=== PATIENT | female | born 1930 | race Caucasian/White ===

== ENCOUNTER 2016-05-05 07:27 | Inpatient (IN) | payer OTHER ==
[~2016-05-05] VITALS: Ht 167.6 cm; Wt 94.0 kg
[~2016-05-05 07:27] MED LIST: ALLO300T2 PO; ATEN50TA8 PO; FLUT1INH PO; FRRS300 PO; INSDGIPEN SQ; LISI-725 PO; LORA-741 PO; MIRT15TA3 PO; ONDA4TAB4 PO; OXGN
--- NOTE | 2016-05-05 07:52 | EMERGENCY ROOM VISIT NOTE ---
History Report prepared by Scribe: Maria A Reyes Under the Supervision of: Dr. Ben Kern M.D. First contact with patient: 07:38 Chief Complaint: ALTERED MENTAL STATUS Stated Complaint: ALTERED MENTAL STAUS ?SEPSIS? History of Present Illness The patient is an 86 year old female who presents to the Emergency Room with complaints of a persistently altered mental status. She is accompanied by her daughter. Her daughter reports her mental state has been worsening in the past few days. The patient fell on April 17, 2016, but her daughter denies any known head injuries. The patient started experiencing diarrhea yesterday and her daughter reports "It has been watery in nature". Her daughter notes the patient has been septic in the past and states "that is how she's acting currently". She reports the patient has also been "eating napkins and plates recently" and notes her urine has been "foul and strong". Her daughter also states the patient has been "leaning to the right" over the past few days. The patient denies any recent weakness, chest pain, shortness of breath or abdominal pain. She does not take daily blood thinners. Source of History: patient, family (daughter) Onset: C WEB DEVELOPER Position: head Timing: other (persistent) Associated Symptoms: + diarrhea, + urinary symptoms, No SOB, No abdominal pain, No chest pain, No weakness Review of Systems See HPI for pertinent positives & negatives. A total of 10 systems reviewed and were otherwise negative. 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 Nurse's notes were reviewed and I agree with. Family History Diabetes mellitus FH: heart disease FH: lung disease FHx: cancer Hypertension Kidney disease Kidney stones Seizures Social History Smoking Status: Former Smoker Alcohol Use: none Drug Use: none Marital Status: Housing Status: lives with family Occupation Status: retired Current/Historical Medications Scheduled Allopurinol (Zyloprim), 300 MG PO DAILY Atenolol (Tenormin), 50 MG PO DAILY Ferrous Sulfate (Ferrous Sulfate), 325 MG PO QAM Fluticasone Furoate-Vilanterol (Breo Ellipta), 1 PUFF PO DAILY Insulin Glargine (Lantus Solostar), 14 UNITS SQ HS Lisinopril (Zestril), 20 MG PO QAM Mirtazapine (Remeron), 1 TAB PO HS Oxygen (Oxygen), 2.5 LITERS NA HS Scheduled PRN Lorazepam (Ativan), 0.5 MG PO TID PRN for Anxiety Allergies Coded Allergies: Ibuprofen (Verified Allergy, Mild, 05/05/16) Physical Exam Vital Signs Date Time Temp Pulse Resp B/P Pulse Ox O2 Delivery O2 Flow Rate FiO2 05/05/16 08:42 79 18 124/53 97 Room Air 05/05/16 07:30 36.8 89 16 132/71 97 Room Air Physical Exam General: Non-ill appearing older female, well developed, well nourished, in no acute distress, breathing comfortably on room air. Normal speech. Patient is alert to person and place but not date. HEENT: Normal cephalic atraumatic. Pupils are equal round and reactive to light. Extraocular movements are intact. Oropharynx is pink with moist mucous membranes. No swelling of the mouth lips or tongue. Neck: Supple with a midline trachea. No meningeal signs or stiffness, no JVD or bruits. No Stridor. Chest: Clear to auscultation bilaterally. No wheezes or rhonchi. No increased work of breathing. Heart: regular rate and rhythm. Abdomen: Soft nontender, nondistended without rebound guarding or rigidity. Extremities: No cyanosis clubbing or edema. No calf tenderness or assymetry Spine/Back. Non tender to palpation. No CVA tenderness Skin: Good turgor without rashes. Neurologic exam: Cranial nerves two through 12 are intact. Motor and sensation are intact and symmetrical throughout. Medical Decision & Procedures ER Provider Diagnostic Interpretation: This X-Ray was reviewed and interpreted by myself and the radiologist. CHEST ONE VIEW PORTABLE IMPRESSION: Negative chest. Electronically signed by: Tai Powell M.D. 05/05/2016 8:[address] scan was reviewed and interpreted by the radiologist and reviewed by myself. HEAD CT NONCONTRAST Impression: Age-related change. No acute process. Electronically signed by: Tai Powell M.D. 05/05/2016 8:19 AM Laboratory Results 05/05/16 08:10 Red Blood Count 4.10, Mean Corpuscular Volume 86.6, Mean Corpuscular Hemoglobin 28.8, Mean Corpuscular Hemoglobin Concent 33.2, Mean Platelet Volume 10.4, Neutrophils (%) (Auto) 78.5, Lymphocytes (%) (Auto) 10.9, Monocytes (%) (Auto) 9.4, Eosinophils (%) (Auto) 0.5, Basophils (%) (Auto) 0.2, Neutrophils # (Auto) 7.69, Lymphocytes # (Auto) 1.07, Monocytes # (Auto) 0.92, Eosinophils # (Auto) 0.05, Basophils # (Auto) 0.02 05/05/16 08:10 Test 05/05/16 08:10 05/05/16 08:13 05/05/16 08:14 05/05/16 08:40 White Blood Count 9.80 K/uL (4.8-10.8) Red Blood Count 4.10 M/uL (4.2-5.4) Hemoglobin 11.8 g/dL (12.0-16.0) Hematocrit 35.5 % (37-47) Mean Corpuscular Volume 86.6 fL (80-100) Mean Corpuscular Hemoglobin 28.8 pg (25-34) Mean Corpuscular Hemoglobin Concent 33.2 g/dl (32-36) Platelet Count 242 K/uL (130-400) Mean Platelet Volume 10.4 fL (7.4-10.4) Neutrophils (%) (Auto) 78.5 % Lymphocytes (%) (Auto) 10.9 % Monocytes (%) (Auto) 9.4 % Eosinophils (%) (Auto) 0.5 % Basophils (%) (Auto) 0.2 % Neutrophils # (Auto) 7.69 K/uL (1.4-6.5) Lymphocytes # (Auto) 1.07 K/uL (1.2-3.4) Monocytes # (Auto) 0.92 K/uL (0.11-0.59) Eosinophils # (Auto) 0.05 K/uL (0-0.5) Basophils # (Auto) 0.02 K/uL (0-0.2) RDW Standard Deviation 49.8 fL (36.4-46.3) RDW Coefficient of Variation 15.5 % (11.5-14.5) Immature Granulocyte % (Auto) 0.5 % Immature Granulocyte # (Auto) 0.05 K/uL (0.00-0.02) Red Blood Cell Morphology Unremarkable Prothrombin Time 10.8 SECONDS (9.0-12.0) Prothromb Time International Ratio 1.0 (0.9-1.1) Anion Gap 12.0 mmol/L (3-11) Estimated GFR () 13.5 Estimated GFR (Non- 11.7 BUN/Creatinine Ratio 21.8 (10-20) Calcium Level 8.9 mg/dl (8.5-10.1) Magnesium Level 2.2 mg/dl (1.8-2.4) Total Bilirubin 0.3 mg/dl (0.2-1) Direct Bilirubin 0.1 mg/dl (0-0.2) Aspartate Amino Transf (AST/SGOT) 14 U/L (15-37) Alanine Aminotransferase (ALT/SGPT) 18 U/L (12-78) Alkaline Phosphatase 105 U/L (45-117) Total Protein 7.9 gm/dl (6.4-8.2) Albumin 2.8 gm/dl (3.4-5.0) Lipase 237 U/L (73-393) Procalcitonin 0.21 ng/mL (0-0.5) Bedside Lactic Acid Venous 1.04 mmol/L (0.90-1.70) Bedside Troponin I 0.000 ng/ml (0-0.045) Urine Color YELLOW Urine Appearance TURBID (CLEAR) Urine pH 5.5 (4.5-7.5) Urine Specific [place] 1.009 (1.000-1.030) Urine Protein 3+ (NEG) Urine Glucose (UA) NEG (NEG) Urine Ketones NEG (NEG) Urine Occult Blood 2+ (NEG) Urine Nitrite POS (NEG) Urine Bilirubin NEG (NEG) Urine Urobilinogen NEG (NEG) Urine Leukocyte Esterase LARGE (NEG) Urine WBC (Auto) >30 /hpf (0-5) Urine RBC (Auto) >30 /hpf (0-4) Urine Hyaline Casts (Auto) 10-30 /lpf (0-5) Urine Epithelial Cells (Auto) 20-30 /lpf (0-5) Urine Bacteria (Auto) 1+ (NEG) Urine Pathogenic Casts /lpf (0) Urine Yeast (Auto) (NONE PRSENT) Laboratory studies as stated above per my review. Medications Administered Medications (Trade) Dose Ordered Sig/E[place]se Route Start Time Stop Time Status Last Admin Dose Admin Sodium Chloride 250 ml @ 999 mls/hr Q16M STAT IV 05/05/16 07:54 05/05/16 08:09 DC 05/05/16 08:41 999 MLS/HR Sodium Chloride 1,000 ml @ 100 mls/hr Q10H STAT IV 05/05/16 07:54 05/05/16 12:56 DC 05/05/16 08:42 100 MLS/HR Sodium Chloride (Nss 1000ml) 1,000 ml @ 999 mls/hr Q1H1M STAT IV 05/05/16 09:02 05/05/16 10:02 DC 05/05/16 09:35 999 MLS/HR Levofloxacin (Levaquin / D5W) 750 mg NOW STAT IV 05/05/16 09:02 05/05/16 09:03 DC 05/05/16 09:34 750 MG ECG Indication: altered mental status Rate (beats per minute): 93 Rhythm: normal sinus (normal sinus rhythm) Findings: nonspecific-ST abn, no acute ischemic change Change: no significant change (No significant change when compared to EKG from January,) ED Course 0738: Past medical records reviewed. The patient was evaluated in room B9, and a complete history and physical examination were performed. 0754: NSS 1000 ml @ 100 mls/hr IV, NSS 250 ml @ 999 mls/hr IV. 0902: Levaquin 750 mg IV, NSS 1000 ml @ 999 mls/hr IV. 0904: I discussed the patient's case with Tammy Mckeon. The patient will be further evaluated. Medical Decision Differential Diagnoses: UTI, sepsis, intracranial process, electrolyte or metabolic abnormality and arrhythmia. This patient comes in as described above. She was placed in room C9. She has been more weak and confused than typical. She's been getting worse over last week. She's had no fever. Daughter is worried about sepsis at she's had sepsis before felt similar. The patient denies any complaints. She's had no head trauma. IV access established. EKG was obtained as well as chest x-ray urinalysis and culture CAT scan of her head. She has a nonfocal neurologic exam and the CAT scan of her head is unremarkable. EKG does not suggest acute coronary syndrome or arrhythmia. She has no acute electrolyte or metabolic abnormalities with exception of significant renal insufficiency compared to baseline. Her creatinine is up in the 3 range. Her urinalysis grossly looks like pus and she clearly has a UTI. She was given IV fluid resuscitation with IV fluid boluses. She remained normotensive. Her lactic acid is not significantly elevated. She was given Levaquin 750 mg IV. Blood and urine cultures have been obtained. She will be admitted for further treatment and evaluation. Consults Time Called: 901 Consulting Physician: Tammy Mckeon Returned Call: [phone] I discussed the patient's case with Tammy Mckeon. The patient will be further evaluated. Impression Primary Impression: Sepsis Additional Impressions: UTI (urinary tract infection) Renal failure Altered mental status Scribe Attestation The scribe's documentation has been prepared under my direction and personally reviewed by me in its entirety. I confirm that the note above accurately reflects all work, treatment, procedures, and medical decision making performed by me. Departure Information Dispostion Being Evaluated By Hospitalist Referrals Khloe Salazar M.D. (MEDICAL) (PCP) Patient Instructions My [facility] Problem Qualifiers
[2016-05-05] MEDS ORDERED: SODIUM CHLORIDE 0.9% 1000ML 1,000 ML IV STA ×2 (07:54→09:02)
[2016-05-05] MEDS ORDERED: SODIUM CHLORIDE 0.9% 1000ML 250 ML IV STA (07:54)
--- NOTE | 2016-05-05 08:20 | DIAGNOSTIC IMAGING REPORT ---
HEAD CT NONCONTRAST CT DOSE: 614.27 mGy.cm HISTORY: Mental status change eval for weakness TECHNIQUE: Multiaxial CT images of the head were performed without the use of intravenous contrast. Comparison: 11/22/2014 Findings: The paranasal sinuses and mastoid air cells are clear. The calvarium and skull base are intact. The ventricles and sulci are within normal limits. There is no mass, hematoma, midline shift, or acute infarct. Age-related chronic small vessel change and atrophy Impression: Age-related change. No acute process. Electronically signed by: Tai Powell M.D. 05/05/2016 8:19 AM Dictated Date/Time: 05/05/2016 8:18 AM
[2016-05-05 08:28] LABS: HEMATOCRIT 35.5 % (37-47); MEAN CELL VOLUME 86.6 fL (80-100); MEAN CORPUSCULAR HEMOGLOBIN 28.8 pg (25-34); MEAN CORPUSCULAR HGB CONC 33.2 g/dl (32-36); MEAN PLATELET VOLUME 10.4 fL (7.4-10.4); PLATELET COUNT 242 K/uL (130-400)
--- NOTE | 2016-05-05 08:35 | DIAGNOSTIC IMAGING REPORT ---
CHEST ONE VIEW PORTABLE CLINICAL HISTORY: CHEST PAIN dyspnea COMPARISON STUDY: 03/01/2016 FINDINGS: The bones soft tissues and hemidiaphragms are normal. The cardiomediastinal silhouette is normal. The lungs are clear. The pulmonary vasculature is normal. IMPRESSION: Negative chest. Electronically signed by: Tai Powell M.D. 05/05/2016 8:33 AM Dictated Date/Time: 05/05/2016 8:33 AM
[2016-05-05] MEDS ORDERED: ONDA4TAB46 PO (08:39)
[2016-05-05 08:46] LABS: ALT/SGPT 18 U/L (12-78); BLOOD UREA NITROGEN 74 mg/dl (7-18); BUN/CREATININE RATIO 21.8 (10-20); CALCIUM 8.9 mg/dl (8.5-10.1); CARBON DIOXIDE 19 mmol/L (21-32); CHLORIDE 106 mmol/L (98-107); GLUCOSE 258 mg/dl (70-99); POTASSIUM 4.7 mmol/L (3.5-5.1); SODIUM 137 mmol/L (136-145)
[2016-05-05 08:49] LABS: ALKALINE PHOSPHATASE 105 U/L (45-117); AST/SGOT 14 U/L (15-37)
[2016-05-05 09:02] LABS: URINE APPEARANCE TURBID (CLEAR); URINE BILIRUBIN NEG (NEG); URINE COLOR YELLOW; URINE EPITHELIAL CELL AUTO 20-30 /lpf (0-5); URINE NITRITE POS (NEG); URINE PH 5.5 (4.5-7.5); URINE SPECIFIC GRAVITY 1.009 (1.000-1.030); UROBILINOGEN NEG (NEG)
[2016-05-05] MEDS ORDERED: LEVAQUIN 750MG / 150ML D5W IV STA (09:02)
[2016-05-05 09:03] LABS: MANUAL MICROSCOPIC REQUIRED? NO; REVIEW REQ? YES
[2016-05-05 09:20] LABS: BASO % 0.2 %; BASO ABS # 0.02 K/uL (0-0.2); COMPLETE YES; EOS % 0.5 %; IG% 0.5 %; LYMPH % 10.9 %; LYMPH ABS # 1.07 K/uL (1.2-3.4); MONO % 9.4 %; NEUT % 78.5 %
[2016-05-05 10:00] VITALS: O2SAT 97; Ht 167.6 cm; Wt 94.0 kg
[2016-05-05] MEDS ORDERED: ONDANSETRON INJ 2 MG/ML 2 ML VIAL IV PRN (10:00)
[2016-05-05] MEDS ORDERED: GLUCAGON FOR INJ 1 MG VIAL SQ PRN (10:00)
[2016-05-05] MEDS ORDERED: ACETAMINOPHEN 325 MG TAB PO PRN (10:00)
[2016-05-05] MEDS ORDERED: DEXTROSE 50% 50 ML SYR IV PRN (10:00)
[2016-05-05] MEDS ORDERED: GLUCOSE 40% GEL 15 GM TUBE PO PRN (10:00)
[2016-05-05] MEDS ORDERED: GLUCOSE 10 TABS/TUBE PO PRN (10:00)
[2016-05-05] MEDS ORDERED: OXGN (10:03)
[2016-05-05] MEDS ORDERED: LORAZEPAM 0.5 MG TAB PO PRN (10:15)
[2016-05-05 11:30] VITALS: BP 151/70; PULSE 83; TEMP 36.9; O2SAT 95
--- NOTE | 2016-05-05 12:59 | History and Physical ---
History & Physical Date & Time of Service: May 05, 2016 at 10:17 Chief Complaint: Altered Mental Staus ?Sepsis? Primary Care Physician: Khloe Salazar M.D. (MEDICAL) History of Present Illness Source: patient This is an 86 y/o female with PMHx of CKD stage 3, Insulin-dependent DM 2, Severe COPD, GERD, HTN, Dyslipidemia and other problems as outlined below who presents to the ED with worsening AMS for the past few days. Pt reports that she has felt "off" for the past month or so but it has gotten worse over the past few days. At baseline patient is fairly sharp and holds conversations easily. Per daughter, patient has been more forgetful and confused than usual and at one point daughter found patient "eating napkins and plates". Her sxs are assoc with generalized weakness, chills, diarrhea, urinary frequency and foul smelling urine. Patient has a recent history of MSSA bacteremia due to UTI. She was treated with 14 day course of Rocephin. Daughter does mention that the patient fell April 17 however she did not hit her head. 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 Patient does not wish for any intervention therefore biopsy was not performed. Pt denies fevers, diaphoresis, chest pain, palpitations, SOB, wheezing, abd pain, N /V, constipation, hematochezia, dysuria, hematuria, LE edema, calf pain, lightheadedness/dizziness. In the ED, vitals are stable. Pt is afebrile with no leukocytosis. HgB 11.8. Creat 3.4. UA 1+ bacteria with 2+ blood and + nitrites. CXR and Head CT are negative. Pt received IVF and Levaquin in the ED. She appears hemodynamically stable. Pt will be admitted for further evaluation and treatment. Past Medical/Surgical History Medical Problems: (1) Chronic diastolic heart failure Permanent Comment: Per echo 11/23/14- EF 65-70%. mild mitral regurgitation. trace tricuspid regurgitation. Status: Chronic (2) Chronic respiratory failure Status: Chronic (3) CKD (chronic kidney disease), stage III Status: Chronic (4) Depressive disorder Status: Chronic (5) Diabetes mellitus, type II Status: Chronic (6) Diabetic polyneuropathy Status: Chronic (7) DJD (degenerative joint disease) Status: Chronic (8) Dyslipidemia Status: Chronic (9) Emphysema Status: Chronic (10) GERD (gastroesophageal reflux disease) Status: Chronic (11) Gout Status: Chronic (12) History of cervical cancer Status: Chronic (13) Hypersomnia with sleep apnea Status: Chronic (14) Hypertension Status: Chronic (15) Lung mass Permanent Comment: likely malignant; patient does not want any intervention at this time Status: Chronic (16) Obesity (BMI 35.0-39.9 without comorbidity) Status: Chronic (17) Osteoarthritis of shoulder Status: Chronic (18) Pulmonary nodules Status: Chronic (19) Vertigo Status: Chronic Surgical Problems: (1) S/P cataract surgery Status: Chronic (2) S/p cystocele repair Status: Chronic (3) S/p rectocele repair Status: Chronic (4) Status post hysterectomy Status: Chronic Family History Diabetes mellitus FH: heart disease FH: lung disease FHx: cancer Hypertension Kidney disease Kidney stones Seizures Social History Smoking Status: Former Smoker (quit ) Alcohol Use: none Drug Use: none Marital Status: Housing status: lives with family (son and grandson) Occupational Status: retired Immunizations History of Influenza Vaccine: Yes Influenza Vaccine Date: Jan 08, 2013 History of Tetanus Vaccine?: Unknown History of Pneumococcal: Yes Pneumococcal Date: Apr 24, 2001 History of Hepatitis B Vaccine: Unknown Multi-Drug Resistant Organisms History of MDRO: Yes Type of MDRO: MRSA Allergies Coded Allergies: Ibuprofen (Verified Allergy, Mild, 05/05/16) Home Medications Scheduled Allopurinol (Zyloprim), 300 MG PO DAILY Atenolol (Tenormin), 50 MG PO DAILY Ferrous Sulfate (Ferrous Sulfate), 325 MG PO QAM Fluticasone Furoate-Vilanterol (Breo Ellipta), 1 PUFF PO DAILY Insulin Glargine (Lantus Solostar), 14 UNITS SQ HS Lisinopril (Zestril), 20 MG PO QAM Mirtazapine (Remeron), 1 TAB PO HS Oxygen (Oxygen), 2.5 LITERS NA HS Scheduled PRN Lorazepam (Ativan), 0.5 MG PO TID PRN for Anxiety Review of Systems Constitutional: + chills, + fatigue, + weakness, No fever, No sweats Eyes: No worsening of vision ENT: No hearing loss Respiratory: No cough, No hemoptysis, No shortness of breath, No sputum, No wheezing Cardiovascular: No chest pain, No claudication, No edema, No palpitations Abdomen: + diarrhea, No GI bleeding, No constipation, No nausea, No pain, No vomiting Genitourinary - Female: No dysuria, No hematuria Neurologic: + weakness Psychiatric: No depression symptoms Endocrine: + fatigue Hematologic / Lymphatic: No abnormal bleeding/bruising Integumentary: + new/changing skin lesions (wound R buttock) Physical Exam Vital Signs Date Time Temp Pulse Resp B/P Pulse Ox O2 Delivery O2 Flow Rate FiO2 05/05/16 08:42 79 18 124/53 97 Room Air 05/05/16 07:30 36.8 89 16 132/71 97 Room Air General Appearance: WD/WN, no apparent distress, + pertinent finding (Pt is laying in bed with daughter at bedside ) Head: normocephalic, atraumatic Eyes: normal inspection, PERRL, EOMI ENT: hearing grossly normal Neck: supple Respiratory/Chest: chest non-tender, lungs clear, normal breath sounds, no respiratory distress, + pertinent finding (no wheezing noted) Cardiovascular: regular rate, rhythm, no edema, no murmur Abdomen/GI: normal bowel sounds, non tender, soft Back: normal inspection Extremities/Musculoskelatal: normal inspection, no calf tenderness, no pedal edema 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, no motor/sensory deficits, alert, normal mood/affect, oriented x 3 Skin: normal color, warm/dry, + pertinent finding (superficial healing wound to R buttock; no drainage noted ) Diagnostics Laboratory Results Results Past 24 Hours Test 05/05/16 08:10 05/05/16 08:13 05/05/16 08:14 05/05/16 08:40 Range/Units White Blood Count 9.80 4.8-10.8 K/uL Red Blood Count 4.10 4.2-5.4 M/uL Hemoglobin 11.8 12.0-16.0 g/dL Hematocrit 35.5 37-47 % Mean Corpuscular Volume 86.6 80-100 fL Mean Corpuscular Hemoglobin 28.8 25-34 pg Mean Corpuscular Hemoglobin Concent 33.2 32-36 g/dl Platelet Count 242 130-400 K/uL Mean Platelet Volume 10.4 7.4-10.4 fL Neutrophils (%) (Auto) 78.5 % Lymphocytes (%) (Auto) 10.9 % Monocytes (%) (Auto) 9.4 % Eosinophils (%) (Auto) 0.5 % Basophils (%) (Auto) 0.2 % Neutrophils # (Auto) 7.69 1.4-6.5 K/uL Lymphocytes # (Auto) 1.07 1.2-3.4 K/uL Monocytes # (Auto) 0.92 0.11-0.59 K/uL Eosinophils # (Auto) 0.05 0-0.5 K/uL Basophils # (Auto) 0.02 0-0.2 K/uL RDW Standard Deviation 49.8 36.4-46.3 fL RDW Coefficient of Variation 15.5 11.5-14.5 % Immature Granulocyte % (Auto) 0.5 % Immature Granulocyte # (Auto) 0.05 0.00-0.02 K/uL Red Blood Cell Morphology Unremarkable Sodium Level 137 136-145 mmol/L Potassium Level 4.7 3.5-5.1 mmol/L Chloride Level 106 98-107 mmol/L Carbon Dioxide Level 19 21-32 mmol/L Anion Gap 12.0 3-11 mmol/L Blood Urea Nitrogen 74 7-18 mg/dl Creatinine 3.40 0.60-1.20 mg/dl Estimated GFR () 13.5 Estimated GFR (Non- 11.7 BUN/Creatinine Ratio 21.8 10-20 Random Glucose 258 70-99 mg/dl Calcium Level 8.9 8.5-10.1 mg/dl Magnesium Level 2.2 1.8-2.4 mg/dl Total Bilirubin 0.3 0.2-1 mg/dl Direct Bilirubin 0.1 0-0.2 mg/dl Aspartate Amino Transf (AST/SGOT) 14 15-37 U/L Alanine Aminotransferase (ALT/SGPT) 18 12-78 U/L Alkaline Phosphatase 105 45-117 U/L Total Protein 7.9 6.4-8.2 gm/dl Albumin 2.8 3.4-5.0 gm/dl Lipase 237 73-393 U/L Bedside Lactic Acid Venous 1.04 0.90-1.70 mmol/L Bedside Troponin I 0.000 0-0.045 ng/ml Urine Color YELLOW Urine Appearance TURBID CLEAR Urine pH 5.5 4.5-7.5 Urine Specific [place] 1.009 1.000-1.030 Urine Protein 3+ NEG Urine Glucose (UA) NEG NEG Urine Ketones NEG NEG Urine Occult Blood 2+ NEG Urine Nitrite POS NEG Urine Bilirubin NEG NEG Urine Urobilinogen NEG NEG Urine Leukocyte Esterase LARGE NEG Urine WBC (Auto) >30 0-5 /hpf Urine RBC (Auto) >30 0-4 /hpf Urine Hyaline Casts (Auto) 10-30 0-5 /lpf Urine Epithelial Cells (Auto) 20-30 0-5 /lpf Urine Bacteria (Auto) 1+ NEG Urine Pathogenic Casts 0 /lpf Urine Yeast (Auto) NONE PRSENT Microbiology Results 05/05/16 Blood Culture, Received Pending 05/05/16 Blood Culture, Received Pending Diagnostic Radiology CXR IMPRESSION: Negative chest. CT HEAD IMPRESSION: Age-related change. No acute process. EKG EKG: NSR at 93 bpm with no acute ischemic changes noted; no change when compared to EKG from 02/10/16 Impression Assessment and Plan ALTERED MENTAL STATUS; ? SECONDARY TO UTI pt presented with worsening confusion and feeling "off" assoc with generalized weakness and diarrhea -admit to med/surg -likely altered due to UTI however need to r/o brain mets -pt is afebrile with no leukocytosis; POC lactic acid 1.04 -CT head is negative; will obtain brain MRI once INA resolves to r/o brain mets -UTI 1+ bacteria with 2+ blood and + nitrites -blood and urine cx-pending -start IVF and Rocephin -neuro checks -pt does not appear septic -monitor INA ON CKD STAGE 3 -bl creatinine is 1.2-1.5; creatinine currently 3.4 (likely elevated due to GI losses) -obtain renal US -hold lisinopril -cont IVF -monitor with prp daily and avoid nephrotoxic agents when able -consult nephro-Dr. Oncu-pending input DIARRHEA R/O BACTERIAL ETIOLOGY -collect stool studies -cont IVF R BUTTOCK WOUND -does not appear infected; no drainage noted -consult wound care 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 -CT scan 01/2016 + partially necrotic mass in the left periaortic position with evidence of mediastinal invasion, mediastinal adenopathy and to a lesser extent right hilar adenopathy and scattered small parenchymal and/or pleural based nodules -pt does not want any intervention therefore biopsy was not pursued INSULIN-DEPENDENT DM 2 -recent A1C 4.8 -cont Lantus at decreased dose -start ISS -monitor BSG AC HS SEVERE COPD -stable; no evidence of acute exacerbation -cont home inhalers -monitor HTN -stable -hold lisinopril due to INA -cont atenolol -monitor DYSLIPIDEMIA -diet controlled DVT PROPHYLAXIS -subq heparin CODE STATUS DNR per discussion with patient upon admission DISPO -Pt seen in collaboration with Dr. Catherine. Please see his addendum for further details. Thanks! Attending Note: Patient is an 86 yr female with PMHx of Lung mass, CKD III, DM II, Severe COPD, GERD, HTN, Multiple UTIs and other comorbidities presents with history of AMS since last few days, generalized weakness, increased urinary frequency and diarrhea. UA is suggestive of possible UTI and blood work showed renal insufficiency. CT head showed no acute pathology. Physical Exam: Vitals signs as noted above General Appearance:Moderately built and nourished, no apparent distress Head: normocephalic, Atraumatic Eyes: normal inspection, EOMI, PERRLA, Anicteric Neck: supple, no JVD, Trachea midline Respiratory/Chest: Decreased breath sounds, CTA, No accessory muscle use Cardiovascular: S1, S2, No murmur Abdomen/GI:Soft, Non tender, Bowel sounds present, No guarding/rigidity/ organomegaly Extremities/Musculoskelatal:normal inspection, Trace edema Neurologic/Psych:AAOX3, grossly no focal neurological deficits Skin:superficial wound on R buttock; no drainage noted Assessment and Plan: Altered mental status: likely metabolic encephalopathy secondary to UTI CT Head: No acute pathology Also to r/o brain mets given history of lung mass No signs of sepsis Continue IV antibiotics, IV fluids Will consider MRI brain once renal function better FU cultures, stool studies INA on CKD III: Likely prerenal Check renal USD IV fluids Monitor renal function Consult Nephrology Hold lisinopril R buttock Wound: Continue wound care DVT Px: Heparin SQ I personally reviewed the record. Patient is interviewed and examined at bedside. Patient's care is coordinated with Laura Mena PA-C. Please refer to the documentation above for details of patient's presentation and for discussion of other issues. VTE Prophylaxis VTE Risk Assessment Done? Y/N: Yes Risk Level: Moderate
[2016-05-05] MEDS: INSULIN ASPART 100 UNITS/ML 3 ML PEN SC SCH ×3 (13:00→21:00)
[2016-05-05 13:10] LABS: PROTHROMBIN TIME (PATIENT) 10.8 SECONDS (9.0-12.0)
[2016-05-05] MEDS: SODIUM CHLORIDE 0.9% 1000ML 1,000 ML IV SCH (13:35)
[2016-05-05] MEDS: CEFTRIAXONE SOD INJ 1 GM in DEXTROSE 5% ADD-VANTAGE 50ML 50 ML IV SCH (13:35)
[2016-05-05] MEDS ORDERED: NYSTATIN OINT 15 GM TUBE EXT SCH (14:00)
[2016-05-05] MEDS: NYSTATIN CR 15 GM TUBE EXT SCH ×2 (15:00→19:49)
[2016-05-05] MEDS: HEPARIN SOD 5000 UNIT/0.5 ML CARP SQ SCH ×2 (15:09→22:15)
[2016-05-05 15:43] VITALS: BP 109/65; PULSE 81; TEMP 36.7; O2SAT 99
[2016-05-05] MEDS ORDERED: NURSING DECISION MEDICATION ORDER SCH (18:00)
[2016-05-05] MEDS ORDERED: MICONAZOLE NITRATE POWDER 43 GM EXT PRN (18:00)
--- NOTE | 2016-05-05 20:47 | DIAGNOSTIC IMAGING REPORT ---
RENAL ULTRASOUND HISTORY: Infection. Pain. Utia; r/o any abnormalities COMPARISON: None. FINDINGS: Right kidney: Maximum dimension 10.8 cm. Mild right renal hydronephrosis. Normal corticomedullary differentiation and cortical thickness. Left kidney: Maximum dimension 9.6 cm. Mild hydronephrosis. Normal corticomedullary differentiation and cortical thickness. Bladder: No bladder wall thickening. The bilateral ureteral jets were identified. IMPRESSION: Mild bilateral renal hydronephrosis. Note is made of several gallstones within the gallbladder Electronically signed by: Tai Powell M.D. 05/05/2016 8:46 PM Dictated Date/Time: 05/05/2016 8:44 PM
[2016-05-05] MEDS ORDERED: INSULIN GLARGINE PER UNIT 10 UNITS in SYRINGE 0 ML SC SCH (21:00)
[2016-05-05] MEDS: MIRTAZAPINE TAB 15 MG TAB PO SCH (21:11)
[2016-05-05] MEDS: INSULIN GLARGINE SOLOSTAR 100 UNITS/ML 3 ML PEN SC SCH (21:11)
[2016-05-06 01:06] VITALS: BP 90/61; PULSE 82; TEMP 36.6; O2SAT 96
[2016-05-06] MEDS: SODIUM CHLORIDE 0.9% 1000ML 1,000 ML IV SCH ×2 (01:16→14:07)
[2016-05-06 05:48] LABS: HEMATOCRIT 31.2 % (37-47); MEAN CELL VOLUME 86.7 fL (80-100); MEAN CORPUSCULAR HEMOGLOBIN 28.1 pg (25-34); MEAN CORPUSCULAR HGB CONC 32.4 g/dl (32-36); MEAN PLATELET VOLUME 10.2 fL (7.4-10.4); PLATELET COUNT 196 K/uL (130-400); WHITE BLOOD COUNT 7.91 K/uL (4.8-10.8)
[2016-05-06] MEDS: HEPARIN SOD 5000 UNIT/0.5 ML CARP SQ SCH ×3 (06:15→21:17)
[2016-05-06 06:17] LABS: BUN/CREATININE RATIO 25.1 (10-20); CALCIUM 8.5 mg/dl (8.5-10.1); CREATININE 2.4 mg/dl (0.60-1.20); POTASSIUM 4.5 mmol/L (3.5-5.1)
[2016-05-06 07:17] VITALS: BP 123/76; PULSE 79; TEMP 36.7; O2SAT 98
[2016-05-06 07:35] VITALS: BP 130/74; PULSE 81; TEMP 36.6; O2SAT 98
[2016-05-06] MEDS: NYSTATIN CR 15 GM TUBE EXT SCH ×3 (07:39→20:00)
[2016-05-06] MEDS: ALLOPURINOL 300 MG TAB PO SCH (07:40)
[2016-05-06] MEDS: FERROUS SULFATE 325 MG TAB PO SCH (07:40)
[2016-05-06] MEDS: INSULIN ASPART 100 UNITS/ML 3 ML PEN SC SCH ×4 (10:16→21:16)
[2016-05-06] MEDS: CEFTRIAXONE SOD INJ 1 GM in DEXTROSE 5% ADD-VANTAGE 50ML 50 ML IV SCH (12:27)
--- NOTE | 2016-05-06 13:33 | NEPHROLOGY CONSULTATION ---
DATE OF CONSULTATION: 05/06/2016 ATTENDING OF RECORD: Dr. Catherine. REASON FOR CONSULTATION: INA. HISTORY OF PRESENT ILLNESS: This is an 86-year-old female who follows with me in my outpatient clinic, last seen about a year ago. At that time, the patient was a diabetic for several years with microalbuminuria, however, no retinopathy, the patient also with hypertension for at least 20 years and also with a history of NSAID use after significant hospitalization in her early 80s with rhabdomyolysis from a fall and she was having ambulatory dysfunction since then. However, the patient did stop the nonsteroidals, does have sleep apnea and wears oxygen at night, history of COPD, quit smoking in 1984, history of chronic diastolic heart failure as well as history of uterine cancer about 50 years ago. At the time I last saw the patient, kidney function numbers were in the mid ones, I last checked April 13 of this year, creatinine was 1.5. The patient presents during this hospitalization with a significant urinary tract infection and was becoming more confused with generalized weakness and chills and foul-smelling urine and also had a fall a couple weeks ago as well and unfortunately she was recently diagnosed with a lung mass highly suspicious for malignancy. However, doing conservative measures, no workup has been done at this time for that. The patient presents with a creatinine of 3.4 and was started on IV fluids, normal saline at 80 mL an hour as well as started on ceftriaxone 1 gram IV q. 24 hours. The patient seems more alert today and remembers me and is able to answer questions appropriately. REVIEW OF SYSTEMS: Positive foul-smelling urine which is improving. Positive confusion which is improving. Positive decreased appetite which is also improving. Positive shortness of breath with overexertion. No chest pain. No nausea, vomiting, not complaining of any diarrhea or constipation to me. No rash or itching, no blurry vision. No dysphagia. All other review of systems otherwise negative. PAST MEDICAL HISTORY: Chronic diastolic heart failure, CKD stage III with baseline creatinine around 1.5, type 2 diabetes for several years, hypertension for many years, COPD, obstructive sleep apnea, gout, history of cervical cancer many years ago, history of newly diagnosed lung mass, however, patient does not want any significant intervention at this time. PAST SURGICAL HISTORY: Hysterectomy and cataract surgeries. FAMILY HISTORY: Significant for kidney disease. SOCIAL HISTORY: Former smoker, quit in 1970s. No alcohol, no drugs. and lives with family. CURRENT MEDICATIONS: Allopurinol 300 mg daily, atenolol 50 mg daily, iron 325 daily, Remeron 15 mg at night, Lantus 10 units at night, heparin 5000 units subQ q. 8, normal saline at 80 mL an hour, ceftriaxone 1 gram IV q. 24. PHYSICAL EXAMINATION: VITAL SIGNS: Temperature 36.6, pulse 81, respiratory rate is 18, blood pressure 130/74, satting 98% on room air. GENERAL: Awake, alert, oriented x3, now initially presented with confusion. EYES: No scleral icterus. ENT: Moist mucous membranes. NECK: Supple. PULMONARY: Clear to auscultation. CARDIAC: Regular rate and rhythm. ABDOMEN: Bowel sounds positive, soft, nontender, nondistended. EXTREMITIES: No significant clubbing, cyanosis or edema. NEUROLOGICALLY: Nonfocal. DERM: No rash or ulcers noted. LABORATORY AND IMAGING DATA: Sodium was 142, potassium 4.5, chloride is 114, bicarbonate is 19, BUN 60, creatinine is 2.4, glucose is 114, calcium is 8.5, mag is 2.0. White count 7.9, H\T\H 10 and 31, platelet count is 196. INR is 1. Urine cultures growing gram negative bacilli. Blood cultures are pending. Renal ultrasound shows right kidney 10.8 cm and left kidney 9.6 cm. Mild bilateral renal hydronephrosis with normal corticomedullary differentiation and a normal cortex. IMPRESSION AND PLAN: 1. Acute kidney injury in the setting of significant urinary tract infection, likely prerenal in nature, improving with appropriate antibiotics for urinary tract infection as well as IV fluids and appears to be tolerating them well. Baseline creatinine is 1.5 and kidney function is improving. Does have some mild hydronephrosis, but would not consult urology at this time for this as this patient is urinating well and appears to be clinically improving. The patient also has an underlying lung mass wherein she does not want aggressive measures and may not necessarily want aggressive measures for the mild hydronephrosis, may benefit from rechecking a renal ultrasound as an outpatient once she is clinically improved. However, we will discuss with the patient as an outpatient whether she wants to pursue this workup or not. So, overall the patient with prerenal acute kidney injury in the setting of gram negative urinary tract infection, clinically improving with appropriate measures,, but would continue the IV fluids and monitor for signs of volume overload. For now, no changes and would repeat a renal ultrasound as outpatient when she is clinically improved and if continues to have some mild hydronephrosis, will discuss with her whether she would like to pursue urology workup or not. TERRY
[2016-05-06 15:25] VITALS: BP 120/71; PULSE 83; TEMP 36.9; O2SAT 96
--- NOTE | 2016-05-06 16:40 | Progress Note ---
Internal Med Progress Note Date of Service: May 06, 2016. Provider Documentation: SUBJECTIVE: Seen and examined at bedside. Confusion resolved. Family at bedside. Denies any chest pain, SOB, hematuria, burning micturition, fever, chills. OBJECTIVE: Vital Signs-as noted below Physical Exam: Vitals signs as noted above General Appearance:Moderately built and nourished, no apparent distress Head: normocephalic, Atraumatic Eyes: normal inspection, EOMI, PERRLA, Anicteric Neck: supple, no JVD, Trachea midline Respiratory/Chest: Decreased breath sounds, CTA, No accessory muscle use Cardiovascular: S1, S2, No murmur Abdomen/GI:Soft, Non tender, Bowel sounds present, No guarding/rigidity/ organomegaly Extremities/Musculoskelatal:normal inspection, Trace edema Neurologic/Psych:AAOX3, grossly no focal neurological deficits Skin:superficial wound on R buttock; no drainage noted Lab data as noted below. ASSESSMENT & PLAN: Altered mental status: likely metabolic encephalopathy secondary to UTI Resolved CT Head: No acute pathology Also to r/o brain mets given history of lung mass No signs of sepsis Continue IV ceftriaxone, IV fluids Will consider MRI brain once renal function better Urine cultures:Gram negative bacilli Blood cultures: pending stool studies: pending INA on CKD III: Likely prerenal Renal USD: mild bilateral hydronephrosis Cr levels improving Baseline Cr:1.5 Continue IV fluids Monitor renal function Appreciate Nephrology input Hold lisinopril May need repeat renal USD as outpatient Will consider Urology consult per Nephrology recommendations R buttock Wound: Grade II Continue wound care 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 CT scan 01/2016: + partially necrotic mass in the left periaortic position with evidence of mediastinal invasion, mediastinal adenopathy and to a lesser extent right hilar adenopathy Patient does not want any intervention DM II Last A1C: 4.8 continue Lantus Continue ISS Accu checks SEVERE COPD stable; no evidence of acute exacerbation cont home inhalers monitor HTN stable hold lisinopril due to INA cont atenolol monitor DVT Px: Heparin SQ CODE STATUS DNR per discussion with patient upon admission Vital Signs: Date Time Temp Pulse Resp B/P Pulse Ox O2 Delivery O2 Flow Rate FiO2 05/06/16 16:00 Room Air 05/06/16 15:25 36.9 83 18 120/71 96 Room Air 05/06/16 08:00 Room Air 05/06/16 07:35 36.6 81 18 130/74 98 Room Air 05/06/16 07:17 36.7 79 18 123/76 98 Room Air 05/06/16 01:06 36.6 82 20 90/61 96 Room Air 05/06/16 00:05 Room Air 05/05/16 20:00 Room Air Lab Results: Results Past 24 Hours Test 05/05/16 16:49 05/05/16 21:08 05/06/16 05:20 05/06/16 07:27 Range/Units Bedside Glucose 128 112 91 70-90 mg/dl White Blood Count 7.91 4.8-10.8 K/uL Red Blood Count 3.60 4.2-5.4 M/uL Hemoglobin 10.1 12.0-16.0 g/dL Hematocrit 31.2 37-47 % Mean Corpuscular Volume 86.7 80-100 fL Mean Corpuscular Hemoglobin 28.1 25-34 pg Mean Corpuscular Hemoglobin Concent 32.4 32-36 g/dl RDW Standard Deviation 49.9 36.4-46.3 fL RDW Coefficient of Variation 15.5 11.5-14.5 % Platelet Count 196 130-400 K/uL Mean Platelet Volume 10.2 7.4-10.4 fL Sodium Level 142 136-145 mmol/L Potassium Level 4.5 3.5-5.1 mmol/L Chloride Level 114 98-107 mmol/L Carbon Dioxide Level 19 21-32 mmol/L Anion Gap 9.0 3-11 mmol/L Blood Urea Nitrogen 60 7-18 mg/dl Creatinine 2.40 0.60-1.20 mg/dl Est Creatinine Clear Calc Drug Dose 19.8 ml/min Estimated GFR () 20.6 Estimated GFR (Non- 17.8 BUN/Creatinine Ratio 25.1 10-20 Random Glucose 114 70-99 mg/dl Calcium Level 8.5 8.5-10.1 mg/dl Magnesium Level 2.0 1.8-2.4 mg/dl Test 05/06/16 11:26 Range/Units Bedside Glucose 173 70-90 mg/dl
[2016-05-06] MEDS: BOOST GLUCOSE CONTROL PO SCH (17:00)
[2016-05-06] MEDS: MIRTAZAPINE TAB 15 MG TAB PO SCH (21:13)
[2016-05-06] MEDS: INSULIN GLARGINE SOLOSTAR 100 UNITS/ML 3 ML PEN SC SCH (21:16)
[2016-05-06 23:39] VITALS: BP 99/67; TEMP 36.7; O2SAT 94
[2016-05-07] MEDS: SODIUM CHLORIDE 0.9% 1000ML 1,000 ML IV SCH ×2 (01:17→14:36)
[2016-05-07] MEDS: HEPARIN SOD 5000 UNIT/0.5 ML CARP SQ SCH ×3 (05:47→21:54)
[2016-05-07] MEDS: ALLOPURINOL 300 MG TAB PO SCH (07:42)
[2016-05-07] MEDS: FERROUS SULFATE 325 MG TAB PO SCH (07:42)
[2016-05-07] MEDS: NYSTATIN CR 15 GM TUBE EXT SCH ×3 (07:43→19:35)
[2016-05-07] MEDS: BOOST GLUCOSE CONTROL PO SCH ×2 (07:43→17:56)
[2016-05-07 07:47] VITALS: BP 153/74; PULSE 76; TEMP 36.8; O2SAT 98
[2016-05-07 08:17] LABS: BUN/CREATININE RATIO 24.9 (10-20); CALCIUM 8.8 mg/dl (8.5-10.1); CREATININE 1.6 mg/dl (0.60-1.20); POTASSIUM 3.8 mmol/L (3.5-5.1)
[2016-05-07 08:30] VITALS: O2SAT 98
[2016-05-07] MEDS: INSULIN ASPART 100 UNITS/ML 3 ML PEN SC SCH ×4 (08:53→20:32)
[2016-05-07] MEDS: CEFTRIAXONE SOD INJ 1 GM in DEXTROSE 5% ADD-VANTAGE 50ML 50 ML IV SCH (12:35)
[2016-05-07 15:04] VITALS: BP 112/61; PULSE 69; TEMP 36.7; O2SAT 94
[2016-05-07 16:00] VITALS: O2SAT 94
--- NOTE | 2016-05-07 16:38 | Progress Note ---
Internal Med Progress Note Date of Service: May 07, 2016. Provider Documentation: SUBJECTIVE: Seen and examined at bedside. States feeling well. Denies any symptoms. Denies any chest pain, SOB, hematuria, burning micturition, fever, chills. OBJECTIVE: Vital Signs-as noted below Physical Exam: Vitals signs as noted above General Appearance:Moderately built and nourished, no apparent distress Head: normocephalic, Atraumatic Eyes: normal inspection, EOMI, PERRLA, Anicteric Neck: supple, no JVD, Trachea midline Respiratory/Chest: Decreased breath sounds, minimal creps at bases. No accessory muscle use Cardiovascular: S1, S2, No murmur Abdomen/GI:Soft, Non tender, Bowel sounds present, No guarding/rigidity/ organomegaly Extremities/Musculoskelatal:normal inspection, Trace edema Neurologic/Psych:AAOX3, grossly no focal neurological deficits Skin:superficial wound on R buttock; no drainage noted Lab data as noted below. ASSESSMENT & PLAN: Altered mental status: likely metabolic encephalopathy secondary to UTI Intermittently confused CT Head: No acute pathology Also to r/o brain mets given history of lung mass No signs of sepsis Continue IV ceftriaxone DC IV fluids Consider MRI brain once renal function stable if confusion still persistent Urine cultures:Klebsiella Pneumonia Blood cultures: No growth to date INA on CKD III: Likely prerenal Renal USD: mild bilateral hydronephrosis Cr levels near baseline at 1.6 today Baseline Cr:1.5 DC IV fluids Monitor renal function Appreciate Nephrology input Hold lisinopril for now May need repeat renal USD as outpatient Will consider Urology consult per Nephrology recommendations R buttock Wound: Grade II Continue wound care 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 CT scan 01/2016: + partially necrotic mass in the left periaortic position with evidence of mediastinal invasion, mediastinal adenopathy and to a lesser extent right hilar adenopathy Patient does not want any intervention DM II Last A1C: 4.8 continue Lantus Continue ISS Accu checks SEVERE COPD stable; no evidence of acute exacerbation cont home inhalers monitor HTN stable hold lisinopril due to INA cont atenolol monitor DVT Px: Heparin SQ CODE STATUS DNR per discussion with patient upon admission DISPOSITION: Plan to discharge in next 48-72 hours if stable Vital Signs: Date Time Temp Pulse Resp B/P Pulse Ox O2 Delivery O2 Flow Rate FiO2 05/07/16 16:00 94 Room Air 05/07/16 15:04 36.7 69 18 112/61 94 Room Air 05/07/16 08:30 98 Room Air 05/07/16 07:47 36.8 76 20 153/74 98 Room Air 05/06/16 23:39 36.7 20 99/67 94 Room Air 05/06/16 20:00 Room Air Lab Results: Results Past 24 Hours Test 05/06/16 20:03 05/07/16 06:56 05/07/16 07:37 05/07/16 11:50 Range/Units Bedside Glucose 208 96 217 70-90 mg/dl Sodium Level 145 136-145 mmol/L Potassium Level 3.8 3.5-5.1 mmol/L Chloride Level 113 98-107 mmol/L Carbon Dioxide Level 21 21-32 mmol/L Anion Gap 11.0 3-11 mmol/L Blood Urea Nitrogen 40 7-18 mg/dl Creatinine 1.60 0.60-1.20 mg/dl Est Creatinine Clear Calc Drug Dose 29.7 ml/min Estimated GFR () 33.7 Estimated GFR (Non- 29.1 BUN/Creatinine Ratio 24.9 10-20 Random Glucose 101 70-99 mg/dl Calcium Level 8.8 8.5-10.1 mg/dl
[2016-05-07] MEDS: MIRTAZAPINE TAB 15 MG TAB PO SCH (20:30)
[2016-05-07] MEDS: INSULIN GLARGINE SOLOSTAR 100 UNITS/ML 3 ML PEN SC SCH (20:32)
[2016-05-08 00:16] VITALS: BP 102/70; PULSE 69; TEMP 36.5; O2SAT 99
[2016-05-08] MEDS: HEPARIN SOD 5000 UNIT/0.5 ML CARP SQ SCH ×3 (05:43→20:15)
[2016-05-08 05:58] LABS: HEMATOCRIT 31.1 % (37-47); MEAN CELL VOLUME 87.1 fL (80-100); MEAN CORPUSCULAR HGB CONC 32.2 g/dl (32-36); MEAN PLATELET VOLUME 10.3 fL (7.4-10.4); PLATELET COUNT 211 K/uL (130-400); RED BLOOD COUNT 3.57 M/uL (4.2-5.4); WHITE BLOOD COUNT 5.51 K/uL (4.8-10.8)
[2016-05-08 06:28] LABS: BUN/CREATININE RATIO 22.7 (10-20); CALCIUM 8.8 mg/dl (8.5-10.1); CREATININE 1.5 mg/dl (0.60-1.20); POTASSIUM 3.6 mmol/L (3.5-5.1)
[2016-05-08 07:48] VITALS: BP 76/52; PULSE 69; TEMP 36.6; O2SAT 94
[2016-05-08] MEDS: ALLOPURINOL 300 MG TAB PO SCH (08:07)
[2016-05-08] MEDS: FERROUS SULFATE 325 MG TAB PO SCH (08:08)
[2016-05-08] MEDS: NYSTATIN CR 15 GM TUBE EXT SCH ×3 (08:09→20:09)
[2016-05-08] MEDS: BOOST GLUCOSE CONTROL PO SCH ×2 (08:12→18:06)
[2016-05-08] MEDS: INSULIN ASPART 100 UNITS/ML 3 ML PEN SC SCH ×4 (09:02→20:15)
--- NOTE | 2016-05-08 09:35 | Clinical Documentation Query ---
CLINICAL DOCUMENTATION QUERY Dr. PALENCIA, In your clinical opinion is this patient being managed for: ( X ) Pressure ulcer of right buttock, stage 2, POA ( X ) Pressure ulcer of left buttock, stage 2, POA ( ) Other explanation of clinical findings (Please Explain) ( ) Unable to determine (Please Define) ( ) Need to Discuss ( ) Not Agree The medical record reflects the following clinical findings, treatment, and risk factors. Clinical Indicators: H/P indicates pt with R buttocks wound. Review of WOCN documentation indicates pt with both L and R buttocks pressure ulcers stage II. Treatment: WOCN consult, cleanse and apply stoma and aloe vesta BID, Risk Factors: age, weakness, encephalopathy, incontinence, suspected lung maligancy Please clarify and document your clinical opinion in the progress notes and discharge summary. Terms such as "probable", "suspected", "likely", "questionable", "possible", or "still to be ruled out" are acceptable. IF IN AGREEMENT, YOU MUST DOCUMENT ABOVE DIAGNOSTIC STATEMENT IN DAILY PROGRESS NOTES AND DISCHARGE SUMMARY. This document is not part of the patient's record. Thank You, Bonita Alvares, RN [phone]
[2016-05-08] MEDS: CEPHALEXIN MONOHYDRATE 500 MG CAP PO SCH ×2 (12:57→20:08)
[2016-05-08 16:27] VITALS: BP 109/73; PULSE 86; TEMP 36.6; O2SAT 91
--- NOTE | 2016-05-08 16:38 | Progress Note ---
Medicine Progress Note Date & Time of Visit: May 08, 2016 at 16:29. Subjective Patient seen and examined. Daughter present at bedside and feels that patient is still intermittently quite confused. Patient thought that someone shampooed her hair this morning with boost. Patient thought that she was at home last night. Discussed with nursing staff this morning who denied noticing any confusion. Objective Last 8 Hrs Date Time Temp Pulse Resp B/P Pulse Ox O2 Delivery O2 Flow Rate FiO2 05/08/16 16:27 36.6 86 20 109/73 91 Room Air 05/08/16 09:19 Room Air Physical Exam: General-awake; alert; NAD; sitting in chair Eyes-EOMI; no scleral icterus Neck-no stridor; trachea midline Lungs-CTA bilaterally; no wheezes/crackles Heart-RRR; no m/r/g Abdomen-soft; NTND; nBS Extremities-no c/c/e; no deformity Neuro-oriented x3; answering questions appropriately; able to count down from 20 ; no gross focal deficits Laboratory Results: Last 24 Hours Test 05/07/16 20:27 05/08/16 05:26 05/08/16 08:44 05/08/16 11:45 Bedside Glucose 182 mg/dl 133 mg/dl 182 mg/dl White Blood Count 5.51 K/uL Red Blood Count 3.57 M/uL Hemoglobin 10.0 g/dL Hematocrit 31.1 % Mean Corpuscular Volume 87.1 fL Mean Corpuscular Hemoglobin 28.0 pg Mean Corpuscular Hemoglobin Concent 32.2 g/dl RDW Standard Deviation 50.1 fL RDW Coefficient of Variation 15.6 % Platelet Count 211 K/uL Mean Platelet Volume 10.3 fL Sodium Level 146 mmol/L Potassium Level 3.6 mmol/L Chloride Level 112 mmol/L Carbon Dioxide Level 22 mmol/L Anion Gap 12.0 mmol/L Blood Urea Nitrogen 34 mg/dl Creatinine 1.50 mg/dl Est Creatinine Clear Calc Drug Dose 31.7 ml/min Estimated GFR () 36.4 Estimated GFR (Non- 31.4 BUN/Creatinine Ratio 22.7 Random Glucose 107 mg/dl Calcium Level 8.8 mg/dl Assessment & Plan Likely metabolic encephalopathy secondary to UTI Intermittently confused CT Head: No acute pathology D/w patient's daughter possibility of MRI brain given h/o underlying lung mass; however as patient has declined any workup or treatment of this lung mass, do not see utility in pursuing and daughter in agreement Klebsiella UTI Ceftriaxone change to Keflex based on urine culture results Acute renal insufficiency: Likely related to underlying UTI Renal ultrasound: mild bilateral hydronephrosis Nephrology consulted Cr baseline ~1.5 - 1.6 Resolved with IVF's Hold lisinopril for now Stage 2 pressure ulcers of right and left buttock (POA) Continue wound care H/o Lung mass CT scan 01/2016: + partially necrotic mass in the left periaortic position with evidence of mediastinal invasion, mediastinal adenopathy and to a lesser extent right hilar adenopathy Patient does not want any intervention DM II Last A1C: 4.8 Continue Lantus Continue ISS Accu checks Severe COPD No evidence of acute exacerbation Cont home inhalers HTN Hold lisinopril due to INA and atenolol due to low-normal pressures DVT Px: Heparin SQ CODE STATUS DNR Consultants: Nephrology Procedures: CT head Age-related change. No acute process. Renal ultrasound Mild bilateral renal hydronephrosis. Note is made of several gallstones within the gallbladder Current Inpatient Medications: Current Inpatient Medications Medications (Trade) Dose Ordered Sig/Elyse Route Start Time Stop Time Status Last Admin Dose Admin Heparin Sodium (Porcine) (Heparin Sq 5000 Unit/0.5ml) 5,000 unit Q8 SQ 05/05/16 14:00 06/04/16 13:59 05/08/16 14:33 5,000 UNIT Acetaminophen (Tylenol Tab) 650 mg Q4H PRN PO 05/05/16 10:00 06/04/16 09:59 Ondansetron HCl (Zofran Inj) 4 mg Q6H PRN IV 05/05/16 10:00 06/04/16 09:59 Insulin Aspart (novoLOG ASPART) SLIDING SCALE If C... ACHS SC 05/05/16 13:00 06/04/16 12:59 05/08/16 12:57 4 UNITS Glucose (Glucose 40% Gel) 15-30 GRAMS 15 GRAMS... UD PRN PO 05/05/16 10:00 06/04/16 09:59 Glucose (Glucose Chew Tab) 4-8 Tablets 4 Tabl... UD PRN PO 05/05/16 10:00 06/04/16 09:59 Dextrose (Dextrose 50% 50ML Syringe) 25-50ML OF 50% DW IV FOR... UD PRN IV 05/05/16 10:00 06/04/16 09:59 Glucagon (Glucagon Inj) 1 mg UD PRN SQ 05/05/16 10:00 06/04/16 09:59 Allopurinol (Zyloprim Tab) 300 mg DAILY PO 05/06/16 08:00 06/05/16 08:59 05/08/16 08:07 300 MG Atenolol (Tenormin Tab) 50 mg DAILY PO 05/06/16 08:00 06/05/16 08:59 05/07/16 07:42 50 MG Ferrous Sulfate (Feosol Tab) 325 mg QAM PO 05/06/16 08:00 06/05/16 08:59 05/08/16 08:08 325 MG Lorazepam (Ativan Tab) 0.5 mg TID PRN PO 05/05/16 10:15 06/04/16 10:14 Mirtazapine (Remeron Tab) 15 mg HS PO 05/05/16 21:00 06/04/16 20:59 05/07/16 20:30 15 MG Miscellaneous Information (Order Awaiting Action) 1 ea QS N/A 05/05/16 16:00 06/04/16 15:59 Insulin Glargine (Lantus Solostar Pen) 10 unit HS SC 05/05/16 21:00 06/04/16 20:59 05/07/16 20:32 10 UNIT Nystatin (Mycostatin Crm) 1 appln TID EXT 05/05/16 14:00 06/04/16 13:59 05/08/16 14:34 1 APPLN Miconazole Nitrate (Desenex Powder) 1 appln PRN PRN EXT 05/05/16 18:00 06/04/16 17:59 05/06/16 07:39 1 APPLN Enteral Nutritional Formula (Boost Glucose Control) 1 can BIDM PO 05/06/16 17:00 06/05/16 16:59 05/08/16 08:12 1 CAN Cephalexin Monohydrate (Keflex Cap) 500 mg BID PO 05/08/16 11:15 05/15/16 19:59 05/08/16 12:57 500 MG
[2016-05-08] MEDS: MIRTAZAPINE TAB 15 MG TAB PO SCH (20:08)
[2016-05-08] MEDS: INSULIN GLARGINE SOLOSTAR 100 UNITS/ML 3 ML PEN SC SCH (20:15)
[2016-05-09 00:15] VITALS: BP_SYST 106; BP_SYST 165; BP_DIAS 71; BP_DIAS 76; PULSE 85; TEMP 36.8; O2SAT 97
[2016-05-09 05:57] LABS: HEMATOCRIT 32.1 % (37-47); MEAN CELL VOLUME 86.1 fL (80-100); MEAN CORPUSCULAR HEMOGLOBIN 27.9 pg (25-34); MEAN CORPUSCULAR HGB CONC 32.4 g/dl (32-36); MEAN PLATELET VOLUME 9.5 fL (7.4-10.4); PLATELET COUNT 179 K/uL (130-400); RED BLOOD COUNT 3.73 M/uL (4.2-5.4); WHITE BLOOD COUNT 5.22 K/uL (4.8-10.8)
[2016-05-09] MEDS: HEPARIN SOD 5000 UNIT/0.5 ML CARP SQ SCH ×2 (05:58→13:36)
[2016-05-09 06:30] LABS: BUN/CREATININE RATIO 23.4 (10-20); CALCIUM 8.7 mg/dl (8.5-10.1); CREATININE 1.4 mg/dl (0.60-1.20); POTASSIUM 3.8 mmol/L (3.5-5.1)
[2016-05-09 07:59] VITALS: BP 116/72; PULSE 81; TEMP 36.3; O2SAT 91
[2016-05-09] MEDS: ALLOPURINOL 300 MG TAB PO SCH (09:04)
[2016-05-09] MEDS: FERROUS SULFATE 325 MG TAB PO SCH (09:04)
[2016-05-09] MEDS: CEPHALEXIN MONOHYDRATE 500 MG CAP PO SCH (09:05)
[2016-05-09] MEDS: NYSTATIN CR 15 GM TUBE EXT SCH ×2 (09:05→13:36)
[2016-05-09] MEDS: BOOST GLUCOSE CONTROL PO SCH (09:05)
[2016-05-09] MEDS: INSULIN ASPART 100 UNITS/ML 3 ML PEN SC SCH ×2 (09:07→12:18)
[2016-05-09 14:08] VITALS: BP 116/72; PULSE 81; TEMP 36.3; O2SAT 91
[2016-05-09] MEDS ORDERED: KFL500 PO (14:10)
--- NOTE | 2016-05-09 14:12 | Discharge Instructions ---
Discharge Instructions Admission Reason for Admission: Acute Kidney Injury; Urinary Tract Infection Discharge Discharge Diagnosis / Problem: Urinary tract infection Discharge Goals Goal(s): Improve disease control Activity Recommendations Activity Limitations: resume your previous activity . Instructions / Follow-Up Instructions / Follow-Up Please follow up with Family Medicine Dr. Salazar on May 14 at 12:50am. Please do not take your Lisinopril until otherwise instructed to do so by Dr. Salazar. Please start the prescription for Keflex (antibiotic) this evening and take as prescribed until you are finished. Current Hospital Diet Patient's current hospital diet: Diabetes Type 2 Diet Discharge Diet Recommended Diet: Diabetes Type 2 Diet Pending Studies Studies pending at discharge: no Medical Emergencies . Who to Call and When: Medical Emergencies: If at any time you feel your situation is an emergency, please call 911 immediately. . Non-Emergent Contact Non-Emergency issues call your: Primary Care Provider . . "Provider Documentation" section prepared by Juana Simpson. VTE Core Measure Inpt VTE Proph given/why not?: Unfractionated heparin SQ
--- NOTE | 2016-05-09 19:44 | Discharge Summary ---
Discharge Summary Admission Date: May 05, 2016 at 09:57 Discharge Date: May 09, 2016 Discharge Disposition: Home Principal Diagnosis: Urinary tract infection Procedures: CT head Age-related change. No acute process. Renal ultrasound Mild bilateral renal hydronephrosis. Note is made of several gallstones within the gallbladder Consultations: Nephrology Medication Reconciliation New Medications: Cephalexin Monohydrate (Cephalexin) 500 Mg Cap 500 MG PO BID for 3 Days, #5 CAP Continued Medications: Allopurinol (Zyloprim) 300 Mg Tab 300 MG PO DAILY, TAB Atenolol (Tenormin) 50 Mg Tab 50 MG PO DAILY Ferrous Sulfate (Ferrous Sulfate) 325 Mg Tab 325 MG PO QAM for 30 Days, #30 TAB Fluticasone Furoate-Vilanterol (Breo Ellipta) 1 Inh Inh 1 PUFF PO DAILY Insulin Glargine (Lantus Solostar) 100 Unit/Ml Inj 14 UNITS SQ HS, #15 Lorazepam (Ativan) 0.5 Mg Tab 0.5 MG PO TID PRN for Anxiety, TAB Mirtazapine (Remeron) 15 Mg Tab 1 TAB PO HS for 30 Days, #30 TAB 3 Refills Oxygen (Oxygen) Gas 2.5 LITERS NA HS Discontinued Medications: Lisinopril (Zestril) 20 Mg Tab 20 MG PO QAM, TAB Admission Information HPI (per Admitting provider): This is an 86 y/o female with PMHx of CKD stage 3, Insulin-dependent DM 2, Severe COPD, GERD, HTN, Dyslipidemia and other problems as outlined below who presents to the ED with worsening AMS for the past few days. Pt reports that she has felt "off" for the past month or so but it has gotten worse over the past few days. At baseline patient is fairly sharp and holds conversations easily. Per daughter, patient has been more forgetful and confused than usual and at one point daughter found patient "eating napkins and plates". Her sxs are assoc with generalized weakness, chills, diarrhea, urinary frequency and foul smelling urine. Patient has a recent history of MSSA bacteremia due to UTI. She was treated with 14 day course of Rocephin. Daughter does mention that the patient fell April 17 however she did not hit her head. 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 Patient does not wish for any intervention therefore biopsy was not performed. Pt denies fevers, diaphoresis, chest pain, palpitations, SOB, wheezing, abd pain, N /V, constipation, hematochezia, dysuria, hematuria, LE edema, calf pain, lightheadedness/dizziness. In the ED, vitals are stable. Pt is afebrile with no leukocytosis. HgB 11.8. Creat 3.4. UA 1+ bacteria with 2+ blood and + nitrites. CXR and Head CT are negative. Pt received IVF and Levaquin in the ED. She appears hemodynamically stable. Pt will be admitted for further evaluation and treatment. Physical Exam (per Admitting): General Appearance: WD/WN, no apparent distress, + pertinent finding (Pt is laying in bed with daughter at bedside ) Head: normocephalic, atraumatic Eyes: normal inspection, PERRL, EOMI ENT: hearing grossly normal Neck: supple Respiratory/Chest: chest non-tender, lungs clear, normal breath sounds, no respiratory distress, + pertinent finding (no wheezing noted) Cardiovascular: regular rate, rhythm, no edema, no murmur Abdomen/GI: normal bowel sounds, non tender, soft Back: normal inspection Extremities/Musculoskelatal: normal inspection, no calf tenderness, no pedal edema Neurologic/Psych: kettle hand II-XII nml as tested, no motor/sensory deficits, alert , normal mood/affect, oriented x 3 Skin: normal color, warm/dry, + pertinent finding (superficial healing wound to R buttock; no drainage noted ) Hospital Course Patient was admitted with confusion, likely metabolic encephalopathy 2/[address] head was negative. D/w patient's daughter and patient possibility of MRI brain given h/o underlying lung mass; however as patient has declined any workup or treatment of this lung mass, do not see utility in pursuing and they are in agreement. Urine culture grew painting sensitive Klebsiella. Ceftriaxone, which had been started on admission, was changed to Keflex and patient was given a prescription to complete a course upon discharge. Patient had acute kidney failure on admission, likely related to underlying UTI. Renal ultrasound showed mild bilateral hydronephrosis. Creatinine returned to baseline with IVF' s. Nephrology was consulted. Lisinopril was held during hospitalization and patient was instructed to continue to hold upon discharge due to normal blood pressures. Patient was continued on the remainder of her medications with the exceptions noted above. Patient deemed stable for discharge with Family Medicine follow up. PE on discharge: General- awake; alert; NAD Eyes- EOMI; no scleral icterus Neck- no stridor; trachea midline Lungs- CTA bilaterally; no wheezes/crackles Heart- RRR; no m/r/g Abdomen- soft; NTND; nBS Back- no gross abnormalities Extremities- no c/c/e; no deformity Neuro- no gross focal deficits Skin- no appreciable rash . Total time spent on discharge = This includes examination of the patient, discharge planning, medication reconciliation, and communication with other providers. Discharge Instructions Discharge Instructions Admission Reason for Admission: Acute Kidney Injury; Urinary Tract Infection Discharge Discharge Diagnosis / Problem: Urinary tract infection Discharge Goals Goal(s): Improve disease control Activity Recommendations Activity Limitations: resume your previous activity . Instructions / Follow-Up Instructions / Follow-Up Please follow up with Family Medicine Dr. Salazar on May 14 at 12:50am. Please do not take your Lisinopril until otherwise instructed to do so by Dr. Salazar. Please start the prescription for Keflex (antibiotic) this evening and take as prescribed until you are finished. Current Hospital Diet Patient's current hospital diet: Diabetes Type 2 Diet Discharge Diet Recommended Diet: Diabetes Type 2 Diet Pending Studies Studies pending at discharge: no Medical Emergencies . Who to Call and When: Medical Emergencies: If at any time you feel your situation is an emergency, please call 911 immediately. . Non-Emergent Contact Non-Emergency issues call your: Primary Care Provider . . "Provider Documentation" section prepared by Juana Simpson. VTE Core Measure Inpt VTE Proph given/why not?: Unfractionated heparin SQ Additional Copies To Khloe Salazar M.D. (MEDICAL)
== END 2016-05-09 14:30 | disposition home or self-care (01) | DRG 682 ==
LOC: ENRESERVTM → ENRESERVDT → C.EDB 07:28 → UNDOADMIN 09:57 → C.4E 09:57
PROVIDERS: ADMIT Internal Medicine; ATTEND Internal Medicine
DX: N17.9 Acute kidney failure, unspecified (principal); G93.41 Metabolic encephalopathy; N39.0 Urinary tract infection, site not specified; I50.32 Chronic diastolic (congestive) heart failure; I13.0 Hypertensive heart and chronic kidney disease with heart failure and stage 1 through stage 4 chronic kidney disease, or unspecified chronic kidney disease; C34.90 Malignant neoplasm of unspecified part of unspecified bronchus or lung; J44.9 Chronic obstructive pulmonary disease, unspecified; K21.9 Gastro-esophageal reflux disease without esophagitis; N18.3 Chronic kidney disease, stage 3 (moderate); E11.22 Type 2 diabetes mellitus with diabetic chronic kidney disease; E78.5 Hyperlipidemia, unspecified; N13.30 Unspecified hydronephrosis; M10.9 Gout, unspecified; E11.42 Type 2 diabetes mellitus with diabetic polyneuropathy; M19.019 Primary osteoarthritis, unspecified shoulder; Z85.41 Personal history of malignant neoplasm of cervix uteri; G47.10 Hypersomnia, unspecified; G47.33 Obstructive sleep apnea (adult) (pediatric); Z68.35 Body mass index [BMI] 35.0-35.9, adult; Z83.3 Family history of diabetes mellitus; Z82.49 Family history of ischemic heart disease and other diseases of the circulatory system; Z80.9 Family history of malignant neoplasm, unspecified; E66.9 Obesity, unspecified; Z87.891 Personal history of nicotine dependence; Z79.4 Long term (current) use of insulin; Z66 Do not resuscitate; K80.20 Calculus of gallbladder without cholecystitis without obstruction

== ENCOUNTER 2017-10-24 13:37 | Inpatient (IN) | payer OTHER ==
[~2017-10-24] VITALS: Ht 160 cm; Wt 102.6 kg
[~2017-10-24 13:37] MED LIST changes: -LISI-725 PO; -ONDA4TAB4 PO
[2017-10-24 14:43] LABS: BASO % 0.3 %; BASO ABS # 0.02 K/uL (0-0.2); EOS % 2.3 %; EOS ABS # 0.18 K/uL (0-0.5); HEMATOCRIT 36.1 % (37-47); HEMOGLOBIN 10.9 g/dL (12.0-16.0); IG# 0.02 K/uL (0.00-0.02); LYMPH % 17.8 %; LYMPH ABS # 1.41 K/uL (1.2-3.4); MEAN CELL VOLUME 84.3 fL (80-100); MEAN CORPUSCULAR HEMOGLOBIN 25.5 pg (25-34); MEAN CORPUSCULAR HGB CONC 30.2 g/dl (32-36); MEAN PLATELET VOLUME 11.1 fL (7.4-10.4); MONO % 7.3 %; MONO ABS # 0.58 K/uL (0.11-0.59); PLATELET COUNT 184 K/uL (130-400); RED CELL DISTRIBUTION WIDTH CV 15.8 % (11.5-14.5); RED CELL DISTRIBUTION WIDTH SD 48.2 fL (36.4-46.3); WHITE BLOOD COUNT 7.91 K/uL (4.8-10.8)
--- NOTE | 2017-10-24 15:07 | EMERGENCY ROOM VISIT NOTE ---
History Report prepared by Jaya: Mickey Crenshaw Under the Supervision of: Dr. Caden Loo M.D. First contact with patient: 13:59 Chief Complaint: URINARY SYMPTOMS Stated Complaint: UTI, POSSIBLE KIDNEY FAILURE Nursing Triage Summary: Pt has had multiple UTI's. Pt has recently not been eating or drinking very much and has had increased swelling in her BLE's. Pt's PCP instructed her to come to the ER to get further testing and faster results. History of Present Illness The patient is an 87 year old female who presents to the Emergency Room with complaints of persistent urinary symptoms that she has been experiencing for the past week. The patient notes that she saw her primary care office last week and received a course of 5 injections of an unknown antibiotic for a UTI. She delivered a post-treatment sample to the office yesterday which revealed blood and infection. The patient is still experiencing urinary retention, but does notice hematuria and dysuria present when she voids. She denies any abdominal pain, vomiting, melena, chest pain, or shortness of breath. The family member at bedside adds that she has had some unusual swelling to her lower extremities. She notes that the patient is at her baseline mental status, but has been having some unusually high blood sugar readings in the 300s over the past month. Source of History: patient, family Onset: Past week Position: other (Genitourinary) Quality: other (Urinary retention) Associated Symptoms: + urinary symptoms (Hematuria present), No chest pain, No SOB, No abdominal pain, No diarrhea Note: Family member notes lower extremity swelling. Review of Systems See HPI for pertinent positives and negatives. A total of ten systems were reviewed and were otherwise negative. 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 (19) Pulmonary nodules (20) Vertigo Surgical Problems: (1) S/P cataract surgery (2) S/p cystocele repair (3) S/p rectocele repair (4) Status post hysterectomy Family History Diabetes mellitus FH: heart disease FH: lung disease FHx: cancer Hypertension Kidney disease Kidney stones Seizures Social History Smoking Status: Never Smoker Alcohol Use: none Drug Use: none Marital Status: Housing Status: lives with family Occupation Status: retired Current/Historical Medications Scheduled Allopurinol (Zyloprim), 300 MG PO QAM Atenolol (Tenormin), 50 MG PO QAM Ferrous Sulfate (Kp Ferrous Sulfate), 1 TAB PO QAM Fluticasone Furoate-Vilanterol (Breo Ellipta), 1 PUFF PO QAM Home O2 Therapy (Oxygen), 2.5 LITERS NA HS Insulin Glargine (Lantus Solostar), 14 UNITS SQ HS Allergies Coded Allergies: Ibuprofen (Verified Allergy, Mild, 10/24/17) Physical Exam Vital Signs Date Time Temp Pulse Resp B/P (MAP) Pulse Ox O2 Delivery O2 Flow Rate FiO2 10/24/17 19:58 75 20 183/57 96 Room Air 10/24/17 18:29 74 18 177/70 96 Room Air 10/24/17 17:21 88 18 200/68 96 10/24/17 16:17 72 18 194/67 97 Room Air 10/24/17 13:40 36.7 86 20 197/97 Room Air Physical Exam Physical Exam GENERAL: She is oriented to person, place, and time. She appears well- developed and well-nourished. She does not appear distressed. HENT: Exam performed. Head: Normocephalic and atraumatic. Right Ear: External ear normal. No mastoid tenderness. Left Ear: External ear normal. No mastoid tenderness. Mouth/Throat: The oropharynx is clear and moist. No trismus in the jaw. No dental abscesses or uvula swelling. No oropharyngeal exudate or tonsillar abscesses. EYES: Conjunctivae and EOM are normal. Pupils are equal, round, and reactive to light. Right eye exhibits no discharge. Left eye exhibits no discharge. No scleral icterus. NECK: Normal range of motion. Neck supple. No JVD present. No spinous process tenderness present. No carotid bruit present. No rigidity. No tracheal deviation and normal range of motion present. No Brudzinski's sign and no Kernig 's sign noted. CV: Normal rate, regular rhythm, normal heart sounds and intact distal pulses. There is no peripheral edema. Palpable radial pulses bue. PULM/CHEST: Effort pramod. No respiratory distress. There are rales present at the base of the lungs. No stridor. She has no wheezes. Chest Wall: She exhibits no tenderness. ABD: The abdomen is soft. Bowel sounds are normal. She has no distension. No mass is present. There is no tenderness. There is no rebound, no guarding, no Jones's sign and no tenderness at McBurney's point. Rovsig negative MUSC/SKEL: Normal range of motion. There is no tenderness or deformity. There is 1+ bilateral lower extremity edema. LYMPH: No cervical adenopathy. NEURO: She is alert and oriented x2, baseline per daughter. She has normal strength. No cranial nerve deficit or sensory deficit. Coordination and gait normal. GCS eye subscore is 4. GCS verbal subscore is 5. GCS motor subscore is 6. Cerebellar tests wnl. SKIN: Skin is warm and dry. She is not diaphoretic. PSYCH: She has a normal mood and affect. Behavior is normal. Judgment and thought content normal. Medical Decision & Procedures ER Provider Diagnostic Interpretation: Radiology results as stated below per my review and radiologist interpretation: CT SCAN OF THE ABDOMEN AND PELVIS WITHOUT CONTRAST CLINICAL HISTORY: Flank pain. COMPARISON STUDY: Renal ultrasound performed May 2016 TECHNIQUE: CT scan of the abdomen and pelvis was performed from the lung bases to the proximal femurs. Images are reviewed in the axial, sagittal, and coronal planes. IV contrast was not administered for this examination. A dose lowering technique was utilized adhering to the principles of ALARA. CT DOSE: 1833.79 mGy.cm FINDINGS: Lower chest: There is a calcified right lower lobe granuloma. Liver: The unenhanced liver is normal in size, contour, and attenuation. There is no intrahepatic biliary ductal dilatation. Gallbladder: Cholelithiasis Spleen: There are multiple calcified granulomas present. The spleen is the upper limits of normal in size. Pancreas: Unremarkable. Adrenal glands: Unremarkable. Kidneys: There is a punctate left renal cortical calcification. No renal calculi are visualized. There is no hydronephrosis. No ureteral calculi are visualized. There is a 1 cm left renal cyst. There is equivocal minor infiltration the right renal sinus fat. Correlate clinically for signs of a urinary tract infection. Bowel: There are no transition zones indicate bowel obstruction. By history the appendix is surgically absent. There is no acute diverticulitis. Peritoneum: There are shotty aortocaval lymph nodes at the upper limits of normal in size. There is a small fat-containing umbilical hernia. Vasculature: There is no evidence of abdominal aortic aneurysm. Atheromatous changes are present within the aorta and iliac vessels. Adenopathy: None. Pelvic viscera: There is an indwelling Horner catheter. The uterus is surgically absent. Skeletal structures: No destructive osseous lesions are seen. There is an old superior endplate T12 compression deformity IMPRESSION: 1. Equivocal minor infiltration of the right renal sinus fat. Correlate clinically for signs of a urinary tract infection 2. No evidence of bowel obstruction. No evidence of free air 3. Surgically absent appendix. No evidence of acute diverticulitis 4. No renal, ureteral, or bladder calculi identified. 5. Cholelithiasis Electronically signed by: Kevin Paula M.D. 10/24/2017 5:51 PM Dictated Date/Time: 10/24/2017 5:44 PM CHEST 2 VIEWS ROUTINE CLINICAL HISTORY: Acute change in mental status COMPARISON STUDY: 09/23/2017 FINDINGS: The cardiac and mediastinal contours are normal. There is no evidence of focal pulmonary consolidation. There is no evidence of failure. No pleural effusions are visualized.[ A minimal left basilar airspace opacities likely atelectatic. There is ankylosis of the dorsal spine. IMPRESSION: 1. Minimal left basilar airspace opacities likely atelectatic 2. No evidence of lobar consolidation 3. No evidence of failure 4. Ankylosis of the dorsal spine Electronically signed by: Kevin Paula M.D. 10/24/2017 5:16 PM Dictated Date/Time: 10/24/2017 5:16 PM Laboratory Results 10/24/17 14:26 Red Blood Count 4.28, Mean Corpuscular Volume 84.3, Mean Corpuscular Hemoglobin 25.5, Mean Corpuscular Hemoglobin Concent 30.2, Mean Platelet Volume 11.1, Neutrophils (%) (Auto) 72.0, Lymphocytes (%) (Auto) 17.8, Monocytes (%) (Auto) 7.3, Eosinophils (%) (Auto) 2.3, Basophils (%) (Auto) 0.3, Neutrophils # (Auto) 5.70, Lymphocytes # (Auto) 1.41, Monocytes # (Auto) 0.58, Eosinophils # (Auto) 0.18, Basophils # (Auto) 0.02 10/24/17 14:26 Test 10/24/17 14:26 10/24/17 15:36 White Blood Count 7.91 K/uL (4.8-10.8) Red Blood Count 4.28 M/uL (4.2-5.4) Hemoglobin 10.9 g/dL (12.0-16.0) Hematocrit 36.1 % (37-47) Mean Corpuscular Volume 84.3 fL (80-100) Mean Corpuscular Hemoglobin 25.5 pg (25-34) Mean Corpuscular Hemoglobin Concent 30.2 g/dl (32-36) Platelet Count 184 K/uL (130-400) Mean Platelet Volume 11.1 fL (7.4-10.4) Neutrophils (%) (Auto) 72.0 % Lymphocytes (%) (Auto) 17.8 % Monocytes (%) (Auto) 7.3 % Eosinophils (%) (Auto) 2.3 % Basophils (%) (Auto) 0.3 % Neutrophils # (Auto) 5.70 K/uL (1.4-6.5) Lymphocytes # (Auto) 1.41 K/uL (1.2-3.4) Monocytes # (Auto) 0.58 K/uL (0.11-0.59) Eosinophils # (Auto) 0.18 K/uL (0-0.5) Basophils # (Auto) 0.02 K/uL (0-0.2) RDW Standard Deviation 48.2 fL (36.4-46.3) RDW Coefficient of Variation 15.8 % (11.5-14.5) Immature Granulocyte % (Auto) 0.3 % Immature Granulocyte # (Auto) 0.02 K/uL (0.00-0.02) Venous Blood pH 7.36 (7.36-7.41) Venous Blood Partial Pressure CO2 56 mmHg (38.0-50.0) Venous Blood Partial Pressure O2 29 mmHg Venous Blood HCO3 31 mmol/L Venous Blood Oxygen Saturation < 60.0 % Venous Blood Base Excess 4.0 mEq/L Anion Gap 6.0 mmol/L (3-11) Est Creatinine Clear Calc Drug Dose 30.0 ml/min Estimated GFR () 36.2 Estimated GFR (Non- 31.2 BUN/Creatinine Ratio 26.7 (10-20) Lactic Acid Level 1.2 mmol/L (0.4-2.0) Calcium Level 9.1 mg/dl (8.5-10.1) Total Bilirubin 0.2 mg/dl (0.2-1) Direct Bilirubin < 0.1 mg/dl (0-0.2) Aspartate Amino Transf (AST/SGOT) 11 U/L (15-37) Alanine Aminotransferase (ALT/SGPT) 14 U/L (12-78) Alkaline Phosphatase 98 U/L (45-117) Ammonia < 10.0 umol/L (11-32) Troponin I < 0.015 ng/ml (0-0.045) Pro-B-Type Natriuretic Peptide 562 pg/ml (0-1800) Total Protein 7.8 gm/dl (6.4-8.2) Albumin 3.3 gm/dl (3.4-5.0) Lipase 252 U/L (73-393) Urine Color RED Urine Appearance CLOUDY (CLEAR) Urine pH 7.0 (4.5-7.5) Urine Specific Curlew 1.020 (1.000-1.030) Urine Protein 2+ (NEG) Urine Glucose (UA) 1+ (NEG) Urine Ketones NEG (NEG) Urine Occult Blood 3+ (NEG) Urine Nitrite NEG (NEG) Urine Bilirubin NEG (NEG) Urine Urobilinogen NEG (NEG) Urine Leukocyte Esterase SMALL (NEG) Urine RBC >30 /hpf (0-4) Urine WBC >30 /hpf (0-5) Urine Epithelial Cells >30 /lpf (0-5) Urine Bacteria 3+ (NEG) Laboratory results reviewed by me Medications Administered Medications (Trade) Dose Ordered Sig/Elyse Route Start Time Stop Time Status Last Admin Dose Admin Ceftriaxone Sodium (Rocephin Inj) 1 gm NOW STAT IV 10/24/17 17:36 10/24/17 17:37 DC 10/24/17 17:50 1 GM ECG Per My Interpretation Indication: other (Hematuria) Rate (beats per minute): 80 Rhythm: sinus rhythm Findings: other (Intervals WNL, no CRYSTAL/STD) ED Course 1404: The patient was evaluated in room B9. A complete history and physical exam was performed. 1416: The ED Component Prep Operator was able to obtain outside records from [facility]. UA from yesterday revealed large amount of blood, positive nitrates , positive leukocyte esterase. 1520: Daughter states that the patient is having difficulty giving urine sample requested a Horner is placed. Horner placed at the request of the daughter. 1736: Ordered Rocephin 1 gm IV. 1742: The patient is having a lot of blood pass through her Horner Catheter at this time. We will obtain a CT of the abdomen. Her urine shows infection. Family notes that 9 days ago the patient finished repeat antibiotic injections. They are unsure of the name of the drug or what the infection was susceptible to. 1755: The patient's urine culture from October 10 showed E. coli what was susceptible to Cefepime, Ceftriaxone, Macrobid, and Zosyn. We will order Ceftriaxone. 1825: Patient CT negative for kidney stone. CT is concerning for pyelonephritis. I do long discussion with the patient and the family member at bedside. I explained to them that they could be discharged home with outpatient antibiotics and follow-up with her PCP. I offered to discharge him home with a Horner catheter also. The family member at bedside who is the patient's primary caregiver states she does not feel comfortable with the patient going home and her taking care of her Horner catheter. Given that the patient was given antibiotic injections at the PCPs office and is not improved and CT shows pyelonephritis, the patient will be admitted to the hospital. I discussed the case with Dr. Collier - [facility] Hospitalist. He will evaluate the patient for further treatment. Medical Decision 1404: The patient was evaluated in room B9. A complete history and physical exam was performed. 1416: The ED Component Prep Operator was able to obtain outside records from [facility]. UA from yesterday revealed large amount of blood, positive nitrates , positive leukocyte esterase. 1520: Daughter states that the patient is having difficulty giving urine sample requested a Horner is placed. Horner placed at the request of the daughter. 1736: Ordered Rocephin 1 gm IV. 1742: The patient is having a lot of blood pass through her Horner Catheter at this time. We will obtain a CT of the abdomen. Her urine shows infection. Family notes that 9 days ago the patient finished repeat antibiotic injections. They are unsure of the name of the drug or what the infection was susceptible to. 1754: The patient's urine culture from October 10 showed E. coli what was susceptible to Cefepime, Ceftriaxone, Macrobid, and Zosyn. We will order Ceftriaxone. 1824: Patient CT negative for kidney stone. CT is concerning for pyelonephritis. I do long discussion with the patient and the family member at bedside. I explained to them that they could be discharged home with outpatient antibiotics and follow-up with her PCP. I offered to discharge him home with a Horner catheter also. The family member at bedside who is the patient's primary caregiver states she does not feel comfortable with the patient going home and her taking care of her Horner catheter. Given that the patient was given antibiotic injections at the PCPs office and is not improved and CT shows pyelonephritis, the patient will be admitted to the hospital. I discussed the case with Dr. Nando Michael. He will evaluate the patient for further treatment. Medication Reconcilliation Current Medication List: was personally reviewed by me Blood Pressure Screening Patient's blood pressure: Elevated blood pressure Referred to hospitalist. Consults Time Called: 1819 Consulting Physician: Dr. Nando Michael. Returned Call: 1824 I discussed the case with Dr. Nando Michael. He will evaluate the patient for further treatment. Impression Primary Impression: Pyelonephritis Scribe Attestation The scribe's documentation has been prepared under my direction and personally reviewed by me in its entirety. I confirm that the note above accurately reflects all work, treatment, procedures, and medical decision making performed by me. The chart was completed utilizing [employer] Speech voice recognition software. Grammatical errors, random word insertions, pronoun errors, and incomplete sentences are an occasional consequence of this system due to software limitations, ambient noise, and hardware issues. Any formal questions or concerns about the content, text, or information contained within the body of this dictation should be directly addressed to the physician for clarification. Departure Information Dispostion Being Evaluated By Hospitalist Prescriptions Insulin Glargine (Lantus Solostar) 100 Unit/Ml Inj 14 UNITS SQ HS, #1 Prov: Palepu, Willis P., MD 10/24/17 Referrals Otilia Gupta D.O. (PCP) Patient Instructions [facility]
[2017-10-24 15:09] LABS: ALBUMIN 3.3 gm/dl (3.4-5.0); ALKALINE PHOSPHATASE 98 U/L (45-117); ALT/SGPT 14 U/L (12-78); AST/SGOT 11 U/L (15-37); BLOOD UREA NITROGEN 40 mg/dl (7-18); CALCIUM 9.1 mg/dl (8.5-10.1); CARBON DIOXIDE 29 mmol/L (21-32); GLUCOSE 260 mg/dl (70-99); LIPASE 252 U/L (73-393); POTASSIUM 4.3 mmol/L (3.5-5.1); SODIUM 140 mmol/L (136-145); TOTAL PROTEIN 7.8 gm/dl (6.4-8.2)
[2017-10-24] MEDS ORDERED: FERR1TAB13 PO (15:15)
--- NOTE | 2017-10-24 17:18 | DIAGNOSTIC IMAGING REPORT ---
CHEST 2 VIEWS ROUTINE CLINICAL HISTORY: Acute change in mental status COMPARISON STUDY: 09/23/2017 FINDINGS: The cardiac and mediastinal contours are normal. There is no evidence of focal pulmonary consolidation. There is no evidence of failure. No pleural effusions are visualized.[ A minimal left basilar airspace opacities likely atelectatic. There is ankylosis of the dorsal spine. IMPRESSION: 1. Minimal left basilar airspace opacities likely atelectatic 2. No evidence of lobar consolidation 3. No evidence of failure 4. Ankylosis of the dorsal spine Electronically signed by: Kevin Paula M.D. 10/24/2017 5:16 PM Dictated Date/Time: 10/24/2017 5:16 PM
[2017-10-24] MEDS ORDERED: CEFTRIAXONE SOD INJ 1 GM ADDVIAL IV STA (17:36)
--- NOTE | 2017-10-24 17:52 | DIAGNOSTIC IMAGING REPORT ---
CT SCAN OF THE ABDOMEN AND PELVIS WITHOUT CONTRAST CLINICAL HISTORY: Flank pain. COMPARISON STUDY: Renal ultrasound performed May 2016 TECHNIQUE: CT scan of the abdomen and pelvis was performed from the lung bases to the proximal femurs. Images are reviewed in the axial, sagittal, and coronal planes. IV contrast was not administered for this examination. A dose lowering technique was utilized adhering to the principles of ALARA. CT DOSE: 1833.79 mGy.cm FINDINGS: Lower chest: There is a calcified right lower lobe granuloma. Liver: The unenhanced liver is normal in size, contour, and attenuation. There is no intrahepatic biliary ductal dilatation. Gallbladder: Cholelithiasis Spleen: There are multiple calcified granulomas present. The spleen is the upper limits of normal in size. Pancreas: Unremarkable. Adrenal glands: Unremarkable. Kidneys: There is a punctate left renal cortical calcification. No renal calculi are visualized. There is no hydronephrosis. No ureteral calculi are visualized. There is a 1 cm left renal cyst. There is equivocal minor infiltration the right renal sinus fat. Correlate clinically for signs of a urinary tract infection. Bowel: There are no transition zones indicate bowel obstruction. By history the appendix is surgically absent. There is no acute diverticulitis. Peritoneum: There are shotty aortocaval lymph nodes at the upper limits of normal in size. There is a small fat-containing umbilical hernia. Vasculature: There is no evidence of abdominal aortic aneurysm. Atheromatous changes are present within the aorta and iliac vessels. Adenopathy: None. Pelvic viscera: There is an indwelling Horner catheter. The uterus is surgically absent. Skeletal structures: No destructive osseous lesions are seen. There is an old superior endplate T12 compression deformity IMPRESSION: 1. Equivocal minor infiltration of the right renal sinus fat. Correlate clinically for signs of a urinary tract infection 2. No evidence of bowel obstruction. No evidence of free air 3. Surgically absent appendix. No evidence of acute diverticulitis 4. No renal, ureteral, or bladder calculi identified. 5. Cholelithiasis Electronically signed by: Kevin Paula M.D. 10/24/2017 5:51 PM Dictated Date/Time: 10/24/2017 5:44 PM
[2017-10-24] MEDS ORDERED: INSDGIPEN SQ (19:58)
[2017-10-24] MEDS ORDERED: ONDANSETRON INJ 2 MG/ML 2 ML VIAL IV PRN (20:00)
[2017-10-24] MEDS ORDERED: ALUMINUM/MAGNESIUM/SIMETH (MAALOX MAX) 30 ML UDC PO PRN (20:00)
[2017-10-24] MEDS ORDERED: ACETAMINOPHEN 325 MG TAB PO PRN (20:00)
[2017-10-24] MEDS ORDERED: POLYETHYLENE (MIRALAX) 17 GM PACK PO PRN (20:00)
[2017-10-24] MEDS ORDERED: VNTHFA/IN INH (20:31)
[2017-10-24] MEDS ORDERED: ALBUTEROL HFA 8 GM INHALER INH PRN (20:45)
[2017-10-24] MEDS ORDERED: CEFEPIME IV 2,000 MG in DEXTROSE 5% 100ML 100 ML IV SCH (21:00)
--- NOTE | 2017-10-24 21:29 | HISTORY & PHYSICAL EXAMINATION ---
DATE OF ADMISSION: 10/24/2017 CHIEF COMPLAINT: Some hematuria as well as lower extremity edema. 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 coli, with Rocephin shots for 5 days, last dose was about 1-1/2 week ago, but still the patient is not feeling well. Today the patient has some mild blood in the urine and also lower extremity edema was getting worse and she is still weak, so daughter brought to the ER. Repeat cultures were drawn as outpatient, was contaminated. The patient is living with her daughter currently. Denies any fever, chills but no nausea, no vomiting, no abdominal pain. Normal bowel movements. No constipation, no headaches, no dizziness, no blurred vision, no earache, no runny nose, no sore throat. Occasional dry cough. No chest pain, no shortness of breath, but orthopnea present. No abdominal pain. Appetite is okay. Ambulates with help of a cane. Currently resting comfortably and hemodynamically stable. ALLERGIES: IBUPROFEN. PAST MEDICAL HISTORY: As mentioned above. PAST SURGICAL HISTORY: Cataract surgery, repair of the bladder and vagina, rectocele, total hysterectomy. MEDICATIONS: The patient is on albuterol 2 puffs every 4 hours p.r.n., ferrous sulfate 325 mg p.o. daily, zinc, atenolol 50 mg p.o. daily, Lantus 14 units at bedtime, allopurinol 300 mg p.o. daily, Breo Ellipta 100/25 mcg 1 puff daily, doxycycline rescue kit, oxygen 2.5 L at bedtime. FAMILY HISTORY: Significant for mother has diabetes, heart disorder, and hypertension. Father has [place], at age of 62. SOCIAL HISTORY: Former smoker, quit in 1984. No alcohol use, no drug use. Currently living with her daughter. REVIEW OF SYMPTOMS: As per HPI. Rest of the review of symptoms negative. PHYSICAL EXAMINATION: GENERAL: The patient is of moderate build, not in distress. VITAL SIGNS: Temperature 36.7, pulse 75, respiratory rate 22, blood pressure 183/57, oxygen 96% on room air. HEENT: No pallor, no icterus. Pupils equal, round, and reactive to light. NECK: No JVD, no neck masses, no carotid bruit. CARDIOVASCULAR: S1, S2, regular rate and rhythm, no murmur, no gallop. RESPIRATORY SYSTEM: Clear to auscultation bilaterally. No wheezing, no crackles. ABDOMEN: Soft, bowel sounds present. Nontender. No distention. CENTRAL NERVOUS SYSTEM: Cranial nerves II-XII grossly intact. Nonfocal. EXTREMITIES: Lower extremity, gross edema present. Mildly erythematous. LABS: WBC 7.9, hemoglobin 10.9, hematocrit 36.1, platelets 184. Sodium 140, potassium 4.3, chloride 105, bicarbonate 29, BUN 40, creatinine 1.4, serum glucose 260. Lactic acid 1.2, calcium 9.1, total bilirubin 0.2, direct bilirubin less than 0.1, AST 11, ALT 14, alkaline phosphatase is 98. Ammonia less than 10. Troponin I less than 0.015. BNP 562. Lipase was 252. Leukocyte esterase small. CT of the abdomen and pelvis shows acute pulmonary infiltrates and right renal sinus fat, correlate clinically for signs of urinary tract infection, cholelithiasis. Chest x-ray, no evidence of failure, no evidence of consolidation. EKG: Normal sinus rhythm with rate of 80, no significant change from previous EKG. ASSESSMENT AND PLAN: This is an 87-year-old female who presents with ongoing urinary tract infection, possible pyelonephritis. 1. Urinary tract infection, possible pyelonephritis on CAT scan. Recently had Rocephin shots. Last dose was about a week ago.Had some questionable hematuria today. Urine looks dark in the ER and the patient was placed on Horner catheter. Since she received Rocephin as outpatient, will place her on IV cefepime. Follow the cultures. If she develops any hematuria, will consult urology. 2. Sjhsn-xx-gldoylb diastolic congestive heart failure. Patient is not on diuretic. Lower extremity edema present. Will follow the echocardiogram. We will consider starting her on diuretics. 3. Diabetes, on Lantus; we will place her on Lantus and insulin sliding scale. Follow HbA1c. 4. History of chronic obstructive pulmonary disease. Continue Breo-Ellipta inhaler and albuterol p.r.n. 5. Gout. Continue allopurinol. 6. Hypertension. Continue atenolol. Blood pressure is running high in the Emergency Room. Will also be placed on clonidine p.r.n. Follow and monitor blood pressure, adjust medications. 7. 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 Follow with her PCP. 8. Hyperlipidemia, not on medications. Will follow the lipid profile. 9. Deep venous thrombosis prophylaxis, SCDs for now. 10. Disposition: Admit to medical floor. PT and OT prior to discharge. Social service to help with discharge planning. Code status "Do Not Resuscitate" as per discussion with the patient and daughter. TERRY
[2017-10-24 21:45] VITALS: BP 200/77; PULSE 88; TEMP 36.5; O2SAT 92; Ht 160 cm; Wt 102.6 kg
[2017-10-24] MEDS: INSULIN GLARGINE SOLOSTAR 100 UNITS/ML 3 ML PEN SQ SCH (21:56)
[2017-10-24] MEDS: INSULIN ASPART 100 UNITS/ML 3 ML PEN SC SCH (21:56)
[2017-10-24] MEDS ORDERED: CEFEPIME IV 2,000 MG in SYRINGE 7.5 ML IV SCH (22:00)
[2017-10-24] MEDS ORDERED: CARBOHYDRATES FOR HYPOGLYCEMIA PO PRN (22:15)
[2017-10-24] MEDS ORDERED: GLUCOSE 10 TABS/TUBE PO PRN (22:15)
[2017-10-24] MEDS ORDERED: DEXTROSE 50% 50 ML SYR IV PRN (22:15)
[2017-10-24] MEDS ORDERED: CEFEPIME CONSULT ACTIVE PRN (22:15)
[2017-10-24] MEDS ORDERED: GLUCOSE 40% GEL 15 GM TUBE PO PRN (22:15)
[2017-10-24] MEDS ORDERED: GLUCAGON FOR INJ 1 MG VIAL IM PRN (22:15)
[2017-10-24] MEDS ORDERED: CLONIDINE HCL 0.1 MG TAB PO PRN (22:45)
[2017-10-24 23:50] VITALS: BP 135/62; PULSE 63; TEMP 36.4; O2SAT 95
[2017-10-25] MEDS ORDERED: MICONAZOLE NITRATE POWDER 43 GM EXT PRN (02:15)
[2017-10-25] MEDS ORDERED: NURSING DECISION MEDICATION ORDER SCH (02:15)
[2017-10-25 06:04] LABS: BASO % 0.4 %; BASO ABS # 0.03 K/uL (0-0.2); EOS % 2.5 %; EOS ABS # 0.19 K/uL (0-0.5); HEMATOCRIT 36.9 % (37-47); HEMOGLOBIN 11.2 g/dL (12.0-16.0); IG# 0.02 K/uL (0.00-0.02); LYMPH % 18.1 %; LYMPH ABS # 1.37 K/uL (1.2-3.4); MEAN CELL VOLUME 83.7 fL (80-100); MEAN CORPUSCULAR HEMOGLOBIN 25.4 pg (25-34); MEAN CORPUSCULAR HGB CONC 30.4 g/dl (32-36); MEAN PLATELET VOLUME 10.5 fL (7.4-10.4); MONO % 7.4 %; MONO ABS # 0.56 K/uL (0.11-0.59); NEUT % 71.3 %; NEUT ABS # 5.42 K/uL (1.4-6.5); PLATELET COUNT 189 K/uL (130-400); RED CELL DISTRIBUTION WIDTH CV 15.8 % (11.5-14.5); RED CELL DISTRIBUTION WIDTH SD 48.2 fL (36.4-46.3); WHITE BLOOD COUNT 7.59 K/uL (4.8-10.8)
[2017-10-25 06:24] LABS: HEMOGLOBIN A1C 8.5 % (4.5-5.6)
[2017-10-25 06:31] LABS: CALCIUM 8.7 mg/dl (8.5-10.1); CREATININE 1.54 mg/dl (0.60-1.20); POTASSIUM 3.7 mmol/L (3.5-5.1)
[2017-10-25 07:35] VITALS: BP 120/68; PULSE 61; TEMP 36.4; O2SAT 100
[2017-10-25] MEDS ORDERED: PERFLUTREN LIPID MICROSPHERE (DEFINITY) IV ONE (08:12)
[2017-10-25 09:00] VITALS: O2SAT 100
[2017-10-25] MEDS: FERROUS SULFATE 325 MG TAB PO SCH (09:39)
[2017-10-25] MEDS: ALLOPURINOL 300 MG TAB PO SCH (09:40)
[2017-10-25] MEDS: INSULIN ASPART 100 UNITS/ML 3 ML PEN SC SCH ×4 (09:43→21:24)
[2017-10-25 15:18] VITALS: BP 191/64; PULSE 74; TEMP 36.8; O2SAT 98
--- NOTE | 2017-10-25 19:00 | Progress Note ---
Internal Med Progress Note Date of Service: Oct 25, 2017. Provider Documentation: SUBJECTIVE: The patient was seen and examined in medical floor She was admitted with another attack of UTI Has been feeling a lot better since this morning Complained of minimal swelling involving the feet Denies any other complaints OBJECTIVE: Vital Signs-as noted below Exam: General-no apparent distress Eyes-normal ENT-normal Neck-supple Lungs-clear to auscultate bilaterally with decreased breath sounds both sites Heart-regular Abdomen-benign, minimally tender hypogastrium, no tenderness in renal angles Extremities-trace edema bilaterally,confined to the feet Neuro-alert, awake and oriented Lab data as noted below. ASSESSMENT & PLAN: This is an 87-year-old female who presents with ongoing urinary tract infection, possible pyelonephritis. Urinary tract infection, possible pyelonephritis on CAT scan. Recently had Rocephin shots. Last dose was about a week ago. Placed on IV cefepime. Follow the cultures. Hematuria Likely secondary to UTI Seems to be improving We will monitor Mrywg-en-evntzxs diastolic congestive heart failure. Patient is not on diuretic. No evidence of any CHF Diabetes, on Lantus; we will place her on Lantus and insulin sliding scale. Follow HbA1c. History of chronic obstructive pulmonary disease. Continue Breo-Ellipta inhaler and albuterol p.r.n. Gout. Continue allopurinol. Hypertension. Continue atenolol. clonidine p.r.n. Follow and monitor blood pressure, adjust medications. 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 Follow with her PCP. Hyperlipidemia, not on medications. Will follow the lipid profile. Deep venous thrombosis prophylaxis, SCDs for now. Disposition: Admit to medical floor. PT and OT prior to discharge. Social service to help with discharge planning. Code status "Do Not Resuscitate" as per discussion with the patient and daughter. Vital Signs: Date Time Temp Pulse Resp B/P (MAP) Pulse Ox O2 Delivery O2 Flow Rate FiO2 10/25/17 15:18 36.8 74 18 191/64 (106) 98 Room Air 10/25/17 09:00 100 Room Air 10/25/17 07:35 36.4 61 18 120/68 (85) 100 Room Air 10/24/17 23:50 36.4 63 18 135/62 (86) 95 Room Air 10/24/17 21:45 36.5 88 20 200/77 92 Room Air 10/24/17 20:30 75 20 183/57 96 10/24/17 19:58 75 20 183/57 96 Room Air Lab Results: Results Past 24 Hours Test 10/24/17 21:41 10/25/17 05:26 10/25/17 07:47 10/25/17 11:52 Range/Units Bedside Glucose 238 200 164 70-90 mg/dl White Blood Count 7.59 4.8-10.8 K/uL Red Blood Count 4.41 4.2-5.4 M/uL Hemoglobin 11.2 12.0-16.0 g/dL Hematocrit 36.9 37-47 % Mean Corpuscular Volume 83.7 80-100 fL Mean Corpuscular Hemoglobin 25.4 25-34 pg Mean Corpuscular Hemoglobin Concent 30.4 32-36 g/dl Platelet Count 189 130-400 K/uL Mean Platelet Volume 10.5 7.4-10.4 fL Neutrophils (%) (Auto) 71.3 % Lymphocytes (%) (Auto) 18.1 % Monocytes (%) (Auto) 7.4 % Eosinophils (%) (Auto) 2.5 % Basophils (%) (Auto) 0.4 % Neutrophils # (Auto) 5.42 1.4-6.5 K/uL Lymphocytes # (Auto) 1.37 1.2-3.4 K/uL Monocytes # (Auto) 0.56 0.11-0.59 K/uL Eosinophils # (Auto) 0.19 0-0.5 K/uL Basophils # (Auto) 0.03 0-0.2 K/uL RDW Standard Deviation 48.2 36.4-46.3 fL RDW Coefficient of Variation 15.8 11.5-14.5 % Immature Granulocyte % (Auto) 0.3 % Immature Granulocyte # (Auto) 0.02 0.00-0.02 K/uL Sodium Level 139 136-145 mmol/L Potassium Level 3.7 3.5-5.1 mmol/L Chloride Level 105 98-107 mmol/L Carbon Dioxide Level 29 21-32 mmol/L Anion Gap 5.0 3-11 mmol/L Blood Urea Nitrogen 35 7-18 mg/dl Creatinine 1.54 0.60-1.20 mg/dl Est Creatinine Clear Calc Drug Dose 30.0 ml/min Estimated GFR () 35.1 Estimated GFR (Non- 30.2 BUN/Creatinine Ratio 22.9 10-20 Random Glucose 134 70-99 mg/dl Estimated Average Glucose 197 mg/dl Hemoglobin A1c 8.5 4.5-5.6 % Calcium Level 8.7 8.5-10.1 mg/dl Magnesium Level 2.1 1.8-2.4 mg/dl Test 10/25/17 16:58 Range/Units Bedside Glucose 138 70-90 mg/dl
[2017-10-25] MEDS: INSULIN GLARGINE SOLOSTAR 100 UNITS/ML 3 ML PEN SQ SCH (21:25)
[2017-10-25] MEDS ORDERED: CEFEPIME IV 2,000 MG in SYRINGE 7.5 ML IV SCH (22:00)
[2017-10-25 23:17] VITALS: BP 155/82; PULSE 72; TEMP 36.3; O2SAT 97
[2017-10-26 07:33] LABS: BASO % 0.3 %; BASO ABS # 0.02 K/uL (0-0.2); EOS % 5.8 %; EOS ABS # 0.41 K/uL (0-0.5); HEMATOCRIT 33.3 % (37-47); IG# 0.04 K/uL (0.00-0.02); LYMPH % 18.5 %; LYMPH ABS # 1.31 K/uL (1.2-3.4); MEAN CELL VOLUME 83.5 fL (80-100); MEAN CORPUSCULAR HEMOGLOBIN 25.1 pg (25-34); MEAN PLATELET VOLUME 10.7 fL (7.4-10.4); MONO % 6.5 %; MONO ABS # 0.46 K/uL (0.11-0.59); NEUT % 68.3 %; NEUT ABS # 4.85 K/uL (1.4-6.5); PLATELET COUNT 163 K/uL (130-400); RED CELL DISTRIBUTION WIDTH CV 15.9 % (11.5-14.5); RED CELL DISTRIBUTION WIDTH SD 48.9 fL (36.4-46.3); WHITE BLOOD COUNT 7.09 K/uL (4.8-10.8)
[2017-10-26] MEDS: FERROUS SULFATE 325 MG TAB PO SCH (07:48)
[2017-10-26] MEDS: ALLOPURINOL 300 MG TAB PO SCH (07:49)
[2017-10-26 08:00] VITALS: BP 178/72; PULSE 70; TEMP 36.6; O2SAT 99
[2017-10-26 08:01] LABS: CALCIUM 8.5 mg/dl (8.5-10.1); CREATININE 1.57 mg/dl (0.60-1.20)
[2017-10-26] MEDS: INSULIN ASPART 100 UNITS/ML 3 ML PEN SC SCH ×3 (09:50→16:30)
[2017-10-26] MEDS ORDERED: CIPROFLOXACIN 250 MG TAB PO ONE (13:15)
[2017-10-26] MEDS ORDERED: NURSING DECISION MEDICATION ORDER SCH (14:15)
--- NOTE | 2017-10-26 14:29 | Progress Note ---
Internal Med Progress Note Date of Service: Oct 26, 2017. Provider Documentation: SUBJECTIVE: The patient was seen and examined in medical floor She was admitted with another attack of UTI Has been feeling a lot better since this morning Complained of minimal swelling involving the feet Denies any other complaints 10/26: Denies any complaints today Out of bed on a chair Denies any pain in the abdomen, any nausea and/or vomiting and no pain in the renal angles OBJECTIVE: Vital Signs-as noted below Exam: General-no apparent distress Happy to be discharged today Eyes-normal ENT-normal Neck-supple Lungs-clear to auscultate bilaterally with decreased breath sounds both sites Heart-regular Abdomen-benign, minimally tender hypogastrium, no tenderness in renal angles Extremities-trace edema bilaterally-edema is better today Neuro-alert, awake and oriented Lab data as noted below. ASSESSMENT & PLAN: This is an 87-year-old female who presents with ongoing urinary tract infection, possible pyelonephritis. Urinary tract infection, possible pyelonephritis on CAT scan. Recently had Rocephin shots. Last dose was about a week ago. Placed on IV cefepime. Follow the cultures.--Culture grew Citrobacter youngae and sensitive to Cipro DC IV cefepime and start oral Cipro 250 twice daily We will discharge home on Cipro for a total of 10 days Hematuria Likely secondary to UTI Seems to be improving We will monitor Improved Kymyd-gi-reptbaq diastolic congestive heart failure. Patient is not on diuretic. No evidence of any CHF Leg edema is better Diabetes, on Lantus; we will place her on Lantus and insulin sliding scale. Follow EnD3h-uogabspk at 8.5 History of chronic obstructive pulmonary disease. Continue Breo-Ellipta inhaler and albuterol p.r.n. Gout. Continue allopurinol. Hypertension. Continue atenolol. clonidine p.r.n. Follow and monitor blood pressure, adjust medications. 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 Follow with her PCP. Hyperlipidemia, not on medications. Will follow the lipid profile. Deep venous thrombosis prophylaxis, SCDs for now. Disposition: Admit to medical floor. PT and OT prior to discharge-Ambulating well. Social service to help with discharge planning. Code status "Do Not Resuscitate" as per discussion with the patient and daughter. Discharge home today Vital Signs: Date Time Temp Pulse Resp B/P (MAP) Pulse Ox O2 Delivery O2 Flow Rate FiO2 10/26/17 08:00 Room Air 10/26/17 08:00 36.6 70 26 178/72 (107) 99 Room Air 10/26/17 00:15 Room Air 10/25/17 23:17 36.3 72 18 155/82 (106) 97 Room Air 10/25/17 16:10 Room Air 10/25/17 15:18 36.8 74 18 191/64 (106) 98 Room Air Lab Results: Results Past 24 Hours Test 10/25/17 16:58 10/25/17 20:10 10/26/17 07:15 10/26/17 07:44 Range/Units Bedside Glucose 138 162 156 70-90 mg/dl White Blood Count 7.09 4.8-10.8 K/uL Red Blood Count 3.99 4.2-5.4 M/uL Hemoglobin 10.0 12.0-16.0 g/dL Hematocrit 33.3 37-47 % Mean Corpuscular Volume 83.5 80-100 fL Mean Corpuscular Hemoglobin 25.1 25-34 pg Mean Corpuscular Hemoglobin Concent 30.0 32-36 g/dl Platelet Count 163 130-400 K/uL Mean Platelet Volume 10.7 7.4-10.4 fL Neutrophils (%) (Auto) 68.3 % Lymphocytes (%) (Auto) 18.5 % Monocytes (%) (Auto) 6.5 % Eosinophils (%) (Auto) 5.8 % Basophils (%) (Auto) 0.3 % Neutrophils # (Auto) 4.85 1.4-6.5 K/uL Lymphocytes # (Auto) 1.31 1.2-3.4 K/uL Monocytes # (Auto) 0.46 0.11-0.59 K/uL Eosinophils # (Auto) 0.41 0-0.5 K/uL Basophils # (Auto) 0.02 0-0.2 K/uL RDW Standard Deviation 48.9 36.4-46.3 fL RDW Coefficient of Variation 15.9 11.5-14.5 % Immature Granulocyte % (Auto) 0.6 % Immature Granulocyte # (Auto) 0.04 0.00-0.02 K/uL Sodium Level 141 136-145 mmol/L Potassium Level 4.0 3.5-5.1 mmol/L Chloride Level 106 98-107 mmol/L Carbon Dioxide Level 30 21-32 mmol/L Anion Gap 5.0 3-11 mmol/L Blood Urea Nitrogen 37 7-18 mg/dl Creatinine 1.57 0.60-1.20 mg/dl Est Creatinine Clear Calc Drug Dose 29.4 ml/min Estimated GFR () 34.2 Estimated GFR (Non- 29.5 BUN/Creatinine Ratio 23.8 10-20 Random Glucose 163 70-99 mg/dl Calcium Level 8.5 8.5-10.1 mg/dl Magnesium Level 2.0 1.8-2.4 mg/dl Test 10/26/17 12:09 Range/Units Bedside Glucose 154 70-90 mg/dl
[2017-10-26 14:45] VITALS: BP 168/64; PULSE 62; TEMP 36.5; O2SAT 96
[2017-10-26] MEDS ORDERED: CIPR250T3 PO (15:04)
[2017-10-26] MEDS ORDERED: LCTX PO (15:04)
--- NOTE | 2017-10-26 15:08 | Discharge Instructions ---
Discharge Instructions Date of Service Oct 26, 2017. Admission Reason for Admission: Pyelonephritis,Uti Discharge Discharge Diagnosis / Problem: Recurrent UTI-May need to put on supressive therapy Discharge Goals Goal(s): Prevent Disease Progression Activity Recommendations Activity Limitations: resume your previous activity . Instructions / Follow-Up Instructions / Follow-Up Dr Krishnamurthy's office will call for appointment.Drink more fluid.Ask for any chronic Suppressive therapy for Recurrent UTI from your Doc. Current Hospital Diet Patient's current hospital diet: Diabetes Type 2 Diet Discharge Diet Recommended Diet: Diabetes Type 2 Diet Pending Studies Studies pending at discharge: no Laboratory Results Hemoglobin A1c Test 10/25/17 05:26 Range/Units Estimated Average Glucose 197 mg/dl Hemoglobin A1c 8.5 H 4.5-5.6 % Medical Emergencies . Who to Call and When: Medical Emergencies: If at any time you feel your situation is an emergency, please call 911 immediately. . Non-Emergent Contact Non-Emergency issues call your: Primary Care Provider . Past History Medical & Surgical History: (1) UTI (urinary tract infection) (2) Emphysema (3) Hypertension (4) Osteoarthritis of shoulder (5) Chronic respiratory failure (6) Diabetes mellitus, type II (7) CKD (chronic kidney disease), stage III (8) Chronic diastolic heart failure (9) Obesity (BMI 35.0-39.9 without comorbidity) (10) Pulmonary nodules (11) Gout (12) Depressive disorder (13) Status post hysterectomy (14) S/P cataract surgery (15) S/p rectocele repair (16) S/p cystocele repair . "Provider Documentation" section prepared by Vince Nichols. .
[2017-10-26 17:36] VITALS: BP 168/64; PULSE 62; TEMP 36.5; O2SAT 96
[2017-10-26] MEDS ORDERED: CIPROFLOXACIN 250 MG TAB PO SCH (20:00)
--- NOTE | 2017-10-27 08:32 | Discharge Summary ---
Discharge Summary Date of Service Oct 27, 2017. Discharge Summary Admission Date: Oct 24, 2017 at 19:57 Discharge Date: Oct 26, 2017 Discharge Disposition: Home Principal Diagnosis: Recurrent UTI-May need to put on suppressive therapy Secondary Diagnoses/Problems: Please see H&P and Hospital progress note Medication Reconciliation New Medications: Lactobacillus Acidophilus (Lactinex) Tab 2 TAB PO BID, #30 TAB Ciprofloxacin (Cipro) 250 Mg Tab 250 MG PO Q12H for 7 Days, #14 TAB Continued Medications: Albuterol Hfa (Ventolin Hfa) 200 Puffs/01423 Mcg Aers 2 PUFFS INH Q4 PRN for SOB/Wheezing, #1 INHALER Allopurinol (Zyloprim) 300 Mg Tab 300 MG PO QAM Atenolol (Tenormin) 50 Mg Tab 50 MG PO QAM Ferrous Sulfate (Kp Ferrous Sulfate) 325 Mg Tab 1 TAB PO QAM Fluticasone Furoate-Vilanterol (Breo Ellipta) 1 Inh Inh 1 PUFF PO QAM Home O2 Therapy (Oxygen) Gas 2.5 LITERS NA HS Insulin Glargine (Lantus Solostar) 100 Unit/Ml Inj 14 UNITS SQ HS, #1 Admission Information HPI (per Admitting provider): DATE OF ADMISSION: 10/24/2017 CHIEF COMPLAINT: Some hematuria as well as lower extremity edema. 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 coli, with Rocephin shots for 5 days, last dose was about 1-1/2 week ago, but still the patient is not feeling well. Today the patient has some mild blood in the urine and also lower extremity edema was getting worse and she is still weak, so daughter brought to the ER. Repeat cultures were drawn as outpatient, was contaminated. The patient is living with her daughter currently. Denies any fever, chills but no nausea, no vomiting, no abdominal pain. Normal bowel movements. No constipation, no headaches, no dizziness, no blurred vision, no earache, no runny nose, no sore throat. Occasional dry cough. No chest pain, no shortness of breath, but orthopnea present. No abdominal pain. Appetite is okay. Ambulates with help of a cane. Currently resting comfortably and hemodynamically stable. ALLERGIES: IBUPROFEN. PAST MEDICAL HISTORY: As mentioned above. PAST SURGICAL HISTORY: Cataract surgery, repair of the bladder and vagina, rectocele, total hysterectomy. MEDICATIONS: The patient is on albuterol 2 puffs every 4 hours p.r.n., ferrous sulfate 325 mg p.o. daily, zinc, atenolol 50 mg p.o. daily, Lantus 14 units at bedtime, allopurinol 300 mg p.o. daily, Breo Ellipta 100/25 mcg 1 puff daily, doxycycline rescue kit, oxygen 2.5 L at bedtime. FAMILY HISTORY: Significant for mother has diabetes, heart disorder, and hypertension. Father has CT, at age of 62. SOCIAL HISTORY: Former smoker, quit in 1984. No alcohol use, no drug use. Currently living with her daughter. REVIEW OF SYMPTOMS: As per HPI. Rest of the review of symptoms negative. PHYSICAL EXAMINATION: GENERAL: The patient is of moderate build, not in distress. VITAL SIGNS: Temperature 36.7, pulse 75, respiratory rate 22, blood pressure 183/57, oxygen 96% on room air. HEENT: No pallor, no icterus. Pupils equal, round, and reactive to light. NECK: No JVD, no neck masses, no carotid bruit. CARDIOVASCULAR: S1, S2, regular rate and rhythm, no murmur, no gallop. RESPIRATORY SYSTEM: Clear to auscultation bilaterally. No wheezing, no crackles. ABDOMEN: Soft, bowel sounds present. Nontender. No distention. CENTRAL NERVOUS SYSTEM: Cranial nerves II-XII grossly intact. Nonfocal. EXTREMITIES: Lower extremity, gross edema present. Mildly erythematous. LABS: WBC 7.9, hemoglobin 10.9, hematocrit 36.1, platelets 184. Sodium 140, potassium 4.3, chloride 105, bicarbonate 29, BUN 40, creatinine 1.4, serum glucose 260. Lactic acid 1.2, calcium 9.1, total bilirubin 0.2, direct bilirubin less than 0.1, AST 11, ALT 14, alkaline phosphatase is 98. Ammonia less than 10. Troponin I less than 0.015. BNP 562. Lipase was 252. Leukocyte esterase small. CT of the abdomen and pelvis shows acute pulmonary infiltrates and right renal sinus fat, correlate clinically for signs of urinary tract infection, cholelithiasis. Chest x-ray, no evidence of failure, no evidence of consolidation. EKG: Normal sinus rhythm with rate of 80, no significant change from previous EKG. ASSESSMENT AND PLAN: This is an 87-year-old female who presents with ongoing urinary tract infection, possible pyelonephritis. 1. Urinary tract infection, possible pyelonephritis on CAT scan. Recently had Rocephin shots. Last dose was about a week ago.Had some questionable hematuria today. Urine looks dark in the ER and the patient was placed on Horner catheter. Since she received Rocephin as outpatient, will place her on IV cefepime. Follow the cultures. If she develops any hematuria, will consult urology. 2. [id number]-[id number] diastolic congestive heart failure. Patient is not on diuretic. Lower extremity edema present. Will follow the echocardiogram. We will consider starting her on diuretics. 3. Diabetes, on Lantus; we will place her on Lantus and insulin sliding scale. Follow HbA1c. 4. History of chronic obstructive pulmonary disease. Continue Breo-Ellipta inhaler and albuterol p.r.n. 5. Gout. Continue allopurinol. 6. Hypertension. Continue atenolol. Blood pressure is running high in the Emergency Room. Will also be placed on clonidine p.r.n. Follow and monitor blood pressure, adjust medications. 7. 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 Follow with her PCP. 8. Hyperlipidemia, not on medications. Will follow the lipid profile. 9. Deep venous thrombosis prophylaxis, SCDs for now. 10. Disposition: Admit to medical floor. PT and OT prior to discharge. Social service to help with discharge planning. Code status "Do Not Resuscitate" as per discussion with the patient and daughter. Dictated: 10/24/172009 Transcribed: 10/24/178 <Electronically signed by Willis Crabtree MD> Signed: 10/25/17 0815 ES Willis Crabtree MD Hospital Course This is an 87-year-old female who presents with ongoing urinary tract infection, possible pyelonephritis. Urinary tract infection, possible pyelonephritis on CAT scan. Recently had Rocephin shots. Last dose was about a week ago. Placed on IV cefepime. Follow the cultures.--Culture grew Citrobacter youngae and sensitive to Cipro DC IV cefepime and start oral Cipro 250 twice daily We will discharge home on Cipro for a total of 10 days Hematuria Likely secondary to UTI Seems to be improving We will monitor Improved [id number]-rh-ufutuxh diastolic congestive heart failure. Patient is not on diuretic. No evidence of any CHF Leg edema is better Diabetes, on Lantus; we will place her on Lantus and insulin sliding scale. Follow [id number] at 8.5 History of chronic obstructive pulmonary disease. Continue Breo-Ellipta inhaler and albuterol p.r.n. Gout. Continue allopurinol. Hypertension. Continue atenolol. clonidine p.r.n. Follow and monitor blood pressure, adjust medications. 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 Follow with her PCP. Hyperlipidemia, not on medications. Will follow the lipid profile. Deep venous thrombosis prophylaxis, SCDs for now. Disposition: Admit to medical floor. PT and OT prior to discharge-Ambulating well. Social service to help with discharge planning. Code status "Do Not Resuscitate" as per discussion with the patient and daughter. Discharge home today Total time spent on discharge = 35 minutes This includes examination of the patient, discharge planning, medication reconciliation, and communication with other providers. Discharge Instructions Date of Service Oct 26, 2017. Admission Reason for Admission: Pyelonephritis,Uti Discharge Discharge Diagnosis / Problem: Recurrent UTI-May need to put on supressive therapy Discharge Goals Goal(s): Prevent Disease Progression Activity Recommendations Activity Limitations: resume your previous activity . Instructions / Follow-Up Instructions / Follow-Up Dr Krishnamurthy's office will call for appointment.Drink more fluid.Ask for any chronic Suppressive therapy for Recurrent UTI from your Doc. Current Hospital Diet Patient's current hospital diet: Diabetes Type 2 Diet Discharge Diet Recommended Diet: Diabetes Type 2 Diet Pending Studies Studies pending at discharge: no Laboratory Results Hemoglobin A1c Test 10/25/17 05:26 Range/Units Estimated Average Glucose 197 mg/dl Hemoglobin A1c 8.5 H 4.5-5.6 % Medical Emergencies . Who to Call and When: Medical Emergencies: If at any time you feel your situation is an emergency, please call 911 immediately. . Non-Emergent Contact Non-Emergency issues call your: Primary Care Provider . Past History Medical & Surgical History: (1) UTI (urinary tract infection) (2) Emphysema (3) Hypertension (4) Osteoarthritis of shoulder (5) Chronic respiratory failure (6) Diabetes mellitus, type II (7) CKD (chronic kidney disease), stage III (8) Chronic diastolic heart failure (9) Obesity (BMI 35.0-39.9 without comorbidity) (10) Pulmonary nodules (11) Gout (12) Depressive disorder (13) Status post hysterectomy (14) S/P cataract surgery (15) S/p rectocele repair (16) S/p cystocele repair . "Provider Documentation" section prepared by Vince Nichols. . <Electronically signed by Vince Nichols M.D.> Signed: 10/26/17 0437 Additional Copies To Hafsa Krishnamurthy D.O.
--- NOTE | 2017-10-29 15:10 | ECHOCARDIOGRAM REPORT ---
*NOTICE TO RECEIVING REPUBLICAN AGENCY This information is strictly Confidential and protected under [place] law. [place] law prohibits you from making any further disclosure of this information unless further disclosure is expressly permitted by the written consent of the person to whom it pertains or is authorized by law. A general authorization for the release of medical or other information is not sufficient for this purpose. Hospital accepts no responsibility if the information is made available to any other person, INCLUDING THE PATIENT. Interpretation Summary * Name: CHRISTIANO SCHNEIDER Study Date: 10/25/2017 07:30 AM BP: 120/68 mmHg * Patient Location: .4E\S\E412\S\1 HR: 61 * : 1930 (M/d/yyy) Gender: Female Height: 62 in * Age: 87 yrs Ethnicity: [place] Weight: 216 lb * Ordering Physician: Willis Crabtree * Performed By: Prabha Carney RDCS * * Reason For Study: Congestive Heart Failure * BSA: 2.0 m2 * Grossly normal valvular structure and function. * -- Conclusions -- * This is a technically limited study. * The left ventricle is normal in size. * Ejection Fraction = 60-65%. * The right ventricular systolic function is normal. * The left atrial size is normal. * Right atrial size is normal. * Grossly normal valvular structure and function. Procedure Details * A complete two-dimensional transthoracic echocardiogram was performed (2D, M-mode, Doppler and color flow Doppler). * The study was technically difficult. * The study was technically difficult, but visualization was adequate with the administration of Definity ultrasound contrast. * There were technical limitations due to patient'sbody habitus * A contrast injection of Definity was performed to improve assessment of LV function. * Contrast was injected into an intravenous site in the left arm. * One vial of Definity ultrasound contrast was diluted in normal saline to a total volume of 10 ml. A total of '2' ml of solution was administered during imaging. * Lot # [id number] of Definity utilized for procedure. * Expiration date 1JUL. * The attending nurse who injected the contrast agent was Aydee Rascon RN. Left Ventricle * The left ventricle is normal in size. * There is normal left ventricular wall thickness. * Ejection Fraction = 60-65%. * Left ventricular systolic function is normal. * The left ventricular wall motion is normal. Right Ventricle * The right ventricle is grossly normal size. * The right ventricular systolic function is normal. Atria * The left atrial size is normal. * Right atrial size is normal. * No ASD detected; PFO is not assessed. Mitral Valve * There is moderate mitral annular calcification. * Significant mitral regurgitation is absent. Tricuspid Valve * The tricuspid valve is not well visualized, but is grossly normal. * Significant tricuspid regurgitation is absent. Aortic Valve * The aortic valve is not well visualized. * No hemodynamically significant valvular aortic stenosis. * There is no significant aortic regurgitation. Pulmonic Valve * The pulmonic valve is not well visualized. MMode 2D Measurements and Calculations IVSd 1.2 cm IVSs 1.8 cm LVIDd 5.1 cm LVIDs 3.6 cm LVPWd 1.3 cm LVPWs 1.8 cm IVS/LVPW 0.91 FS 30.1 % EDV(Teich) 126.1 ml ESV(Teich) 54.2 ml EF(Teich) 57.0 % EDV(cubed) 135.9 ml ESV(cubed) 46.4 ml EF(cubed) 65.9 % % IVS thick 50.5 % % LVPW thick 41.6 % LV mass(C)d 254.9 grams LV mass(C)dI 129.1 grams/m\S\2 LV mass(C)s 272.6 grams LV mass(C)sI 138.0 grams/m\S\2 SV(Teich) 72.0 ml SI(Teich) 36.4 ml/m\S\2 SV(cubed) 89.5 ml SI(cubed) 45.3 ml/m\S\2 Ao root diam 3.2 cm Ao root area 8.2 cm\S\2 ACS 1.2 cm LA dimension 4.0 cm LA/Ao 1.2 LVAd ap4 28.2 cm\S\2 LVLd ap4 8.3 cm EDV(MOD-sp4) 80.5 ml EDV(sp4-el) 81.3 ml LVAs ap4 13.7 cm\S\2 LVLs ap4 6.5 cm ESV(MOD-sp4) 25.8 ml ESV(sp4-el) 24.6 ml EF(MOD-sp4) 68.0 % EF(sp4-el) 69.8 % LVAd ap2 27.5 cm\S\2 LVLd ap2 8.2 cm EDV(MOD-sp2) 79.2 ml EDV(sp2-el) 77.9 ml LVAs ap2 11.7 cm\S\2 LVLs ap2 5.8 cm ESV(MOD-sp2) 21.3 ml ESV(sp2-el) 19.9 ml EF(MOD-sp2) 73.1 % EF(sp2-el) 74.4 % LVLd %diff -0.49 % EDV(MOD-bp) 79.8 ml LVLs %diff -11.53 % ESV(MOD-bp) 24.6 ml EF(MOD-bp) 69.2 % SV(MOD-sp4) 54.7 ml SI(MOD-sp4) 27.7 ml/m\S\2 SV(MOD-sp2) 57.9 ml SI(MOD-sp2) 29.3 ml/m\S\2 SV(MOD-bp) 55.2 ml SI(MOD-bp) 27.9 ml/m\S\2 SV(sp4-el) 56.7 ml SI(sp4-el) 28.7 ml/m\S\2 SV(sp2-el) 58.0 ml SI(sp2-el) 29.4 ml/m\S\2 Doppler Measurements and Calculations MV E max anyi 106.2 cm/sec MV A max anyi 91.2 cm/sec MV E/A 1.2 MV dec time 0.30 sec Ao V2 max 166.1 cm/sec Ao max PG 11.0 mmHg Ao max PG (full) 6.4 mmHg LV V1 max PG 4.6 mmHg LV V1 max 107.7 cm/sec PA V2 max 103.2 cm/sec PA max PG 4.3 mmHg TR max anyi 281.3 cm/sec
== END 2017-10-26 19:02 | disposition home or self-care (01) | DRG 689 ==
LOC: C.EDB 13:38 → C.4E 19:57 → ENRESERV 20:11
PROVIDERS: ADMIT Internal Medicine; ATTEND Internal Medicine
DX: N39.0 Urinary tract infection, site not specified (principal); I50.33 Acute on chronic diastolic (congestive) heart failure; E11.9 Type 2 diabetes mellitus without complications; Z79.4 Long term (current) use of insulin; J44.9 Chronic obstructive pulmonary disease, unspecified; I11.0 Hypertensive heart disease with heart failure; E78.5 Hyperlipidemia, unspecified; M10.9 Gout, unspecified